=== PATIENT | female | born 1930 | race Caucasian/White ===

== ENCOUNTER → 2017-03-02 | Outpatient (CLI) | payer OTHER, MEDICARE | LOC: HYPER 06:58 | DX: T81.89XA Other complications of procedures, not elsewhere classified, initial encounter (principal); S81.801A Unspecified open wound, right lower leg, initial encounter; L03.116 Cellulitis of left lower limb; R60.9 Edema, unspecified; R73.9 Hyperglycemia, unspecified; I86.8 Varicose veins of other specified sites; F32.9 Major depressive disorder, single episode, unspecified; J44.9 Chronic obstructive pulmonary disease, unspecified; Z85.828 Personal history of other malignant neoplasm of skin; Y83.8 Other surgical procedures as the cause of abnormal reaction of the patient, or of later complication, without mention of misadventure at the time of the procedure ==

== ENCOUNTER → 2020-07-04 | Outpatient (CLI) | payer OTHER, MEDICARE | LOC: SJCVC 09:55 | PROVIDERS: ATTEND Internal Medicine Cardiovascular Disease | DX: Z01.818 Encounter for other preprocedural examination (principal); I49.1 Atrial premature depolarization; R94.31 Abnormal electrocardiogram [ECG] [EKG]; I10 Essential (primary) hypertension; E78.00 Pure hypercholesterolemia, unspecified; M19.90 Unspecified osteoarthritis, unspecified site; E78.5 Hyperlipidemia, unspecified; Z79.899 Other long term (current) drug therapy ==

== ENCOUNTER → 2020-07-06 | Outpatient (CLI) | payer OTHER, MEDICARE | LOC: SJCVCIMAG 06:42 | PROVIDERS: ATTEND Internal Medicine Cardiovascular Disease | DX: Z01.810 Encounter for preprocedural cardiovascular examination (principal); I08.2 Rheumatic disorders of both aortic and tricuspid valves; I77.810 Thoracic aortic ectasia; I10 Essential (primary) hypertension; E78.00 Pure hypercholesterolemia, unspecified; E78.5 Hyperlipidemia, unspecified; M19.90 Unspecified osteoarthritis, unspecified site; Z79.899 Other long term (current) drug therapy ==

== ENCOUNTER → 2020-08-21 | Outpatient (CLI) | payer OTHER, MEDICARE | LOC: LAB 14:14 | PROVIDERS: ATTEND Anesthesiology | DX: Z01.812 Encounter for preprocedural laboratory examination (principal); Z20.828 Contact with and (suspected) exposure to other viral communicable diseases ==

== ENCOUNTER → 2020-09-06 | Outpatient (CLI) | payer OTHER, MEDICARE ==
[~2020-09-06] MED LIST: B COMPLEX1 EACH PO; CRESTOR20 MG PO; ELDERBERRY PO; LEVOTHYROXIN0.075 MG PO; LOSARTAN POTAS100 MG PO; NORVASC5 MG PO; SERTRALINE HCL100 MG PO; VITAMIN D3100 MCG PO
== END ==
LOC: LAB 07:19
PROVIDERS: ATTEND Otolaryngology Plastic Surgery within the Head & Neck
DX: Z01.812 Encounter for preprocedural laboratory examination (principal); Z20.828 Contact with and (suspected) exposure to other viral communicable diseases

== ENCOUNTER 2020-09-11 06:16 | Inpatient (IN) | payer OTHER, MEDICARE ==
[~2020-09-11] VITALS: Ht 162.6 cm; Wt 59.1 kg
[2020-09-11] VITALS (11 sets, daily range): BP systolic 113–160; BP diastolic 65–94
[2020-09-11 12:59] LABS: HEMATOCRIT 33.7 % (37.0-47.0); MCH 30.3 pg (26.0-34.0); MCHC 32.8 g/dL (28.0-37.0); MCV 92.5 fL (80.0-100.0); RBC 3.64 mil/uL (4.20-5.00); RDW 14.3 % (10.5-14.5); WBC 6.6 thou/uL (4.0-11.0)
--- NOTE | 2020-09-11 14:00 | H ---
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 HISTORY OF PRESENT ILLNESS: The patient is an 89-year-old female referred by her dentist, Dr. Jefferson and her oral surgeon, Dr. Núñez, for an exophytic mass of her hard palate and maxillary alveolar ridge. This has been biopsied initially on 12/20/2019 and returned a verrucous appearing lesion without malignancy. This was felt to occur after tooth extraction. This was sent to pathology quality assurance consultant in [place], [place]. Final diagnosis was squamous mucosa with atypical papillary epithelial proliferation, but no diagnosis of malignancy. This continued to grow and a second biopsy was done by Dr. Núñez on 03/19/2020, skin showed squamous mucosa with atypical epithelial proliferation, but no evidence of malignancy. The patient was then referred to pr, a third biopsy was done in the office on consultation on 06/28/2020 showing again squamous epithelial hyperplasia, negative for dysplasia or carcinoma. At that point, because of my clinical suspicion, the patient was scheduled for an exam under anesthesia and definitive excisional biopsy. In the meantime, the patient was evaluated by Cardiology in addition to her dentist, Dr. Jefferson for creation of an obturator in anticipation of possible maxillectomy. 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 The patient and her were made in the office and discussion was given to treatment, recommendations were made for definitive excision via maxillectomy. The patient has since been consulted to Dr. Murrieta of Radiation Oncology and Dr. Corona of Medical Oncology. A PET scan was obtained showing a hypermetabolic mass in the right maxilla and hard palate. There was a suggestion of level 2b cervical lymph node as well. [address] [address] HISTORY AND PHYSICAL Name: LINDA BARTLETT Room #: 150-5 [facility] IN M.R.#: [id number] Admission: 09/11/20 Attend Phys: Malachi Kaye MD Discharge: Date of : 31 Report #: [id number] PAST MEDICAL HISTORY: Cataract surgery, history of hypercholesterolemia, measles, mumps, pneumonia, nasal vestibulitis, hearing loss, eustachian tube dysfunction, vertigo, multiple thyroid nodules, tortuous aorta, abnormal chest x-ray, hypertension. ALLERGIES: CODEINE. PAST SURGICAL HISTORY: Include melanoma excision in 01/2006, lipoma removal in 02/2001, nephrectomy on the left on 07/18/1987. MEDICATIONS: Peridex oral rinse, triamcinolone, losartan 100 mg daily, levothyroxine 75 mcg a day, amlodipine 5 mg a day, sertraline 100 mg a day, ____. SOCIAL HISTORY: She does not use alcohol or tobacco. She is , supportive family. FAMILY HISTORY: Father with heart disease, at age 78. Mother at age 82, history of hypertension. PHYSICAL EXAMINATION: GENERAL: Well-developed 89-year-old female seen with her . HEENT: Normocephalic. Pupils are equal, round, and reactive to light. Otologic exam intact. Mobile tympanic membrane. No middle ear effusion. Nasal exam clear. Oral cavity initially showed this exophytic mass in the right maxilla extending almost to the midline and extending on to the alveolar ridge. Postoperatively, this had an AlloDerm graft in place. NECK: No obvious adenopathy was noted. NEUROLOGIC: Cranial nerves 2-12 are intact. Motor, sensory and cerebellar exams were otherwise normal. ASSESSMENT AND PLAN: Squamous cell carcinoma of the right maxilla and maxillary alveolar ridge. This is taken four biopsies to make a diagnosis definitively with excisional biopsy. I have recommended proceeding with definitive maxillectomy due to the exophytic nature of the mass. I have consulted her to Dr. Murrieta and Dr. Corona to consider postoperative radiation and chemotherapy as well as radiation therapy for suspected metastatic disease in the neck. I will hold on definitive neck dissection secondary to the patient's age. I have reviewed the planned procedure, indications, alternatives, benefits, and [facility] [address] [place] [address] HISTORY AND PHYSICAL Name: LINDA BARTLETT Room #: 150-5 ADM IN M.R.#: [id number] Admission: 09/11/20 Attend Phys: Malachi Kaye MD Discharge: Date of : 31 Report #: [id number] potential risks at length with the patient and her who understand and desire to proceed. <ELECTRONICALLY SIGNED> By: Malachi Kaye MD 09/11/20 1400 1328 1354 Malachi Kaye MD /nt
[2020-09-11 16:33] LABS: CALCIUM 8.8 mg/dL (8.5-10.1); CREATININE 1.1 mg/dL (0.6-1.0); POTASSIUM 5.4 mmol/L (3.5-5.1); TOTAL BILIRUBIN 0.4 mg/dL (0.2-1.0); TOTAL PROTEIN 6.2 g/dL (6.4-8.2)
--- NOTE | 2020-09-11 19:49 | NUR ---
1500-FROM PACU EARLIER.SETTLED.--VW 1700- IN EARLIER FOR SHORT VISIT THEN HOME FOR THE NIGHT.PT HAS BEEN SLEEPING OFF & ON SINCE MORPHINE EARLIER.VOICE A LITTLE STRONGER.--VW 1900-CARE TURNED OVER TO ONCOMING RN.--VW
[2020-09-12] VITALS (13 sets, daily range): BP systolic 101–165; BP diastolic 50–77
[2020-09-12 06:10] LABS: HEMATOCRIT 27.9 % (37.0-47.0); HEMOGLOBIN 9.3 gm/dL (12.0-15.0); MCHC 33.3 g/dL (28.0-37.0); RDW 14.1 % (10.5-14.5); WBC 10.1 thou/uL (4.0-11.0)
[2020-09-12 06:11] LABS: CALCIUM 7.7 mg/dL (8.5-10.1); CREATININE 0.8 mg/dL (0.6-1.0)
[2020-09-12 06:35] LABS: POTASSIUM 4.2 mmol/L (3.5-5.1)
--- NOTE | 2020-09-12 10:42 | O ---
[facility] [place] [address] OPERATIVE REPORT Name: LINDA BARTLETT Room #: 249-P ADM IN M.R.#: [id number] Admission: 09/11/20 Attend Phys: Malachi Kaye MD Discharge: Date of : 31 Report #: [id number] THIS REPORT FOR: cc: Gene Price MD,Gene Kaye,Malachi Esposito MD ~ CC: MICAELA Jefferson, FANNY DATE OF SERVICE: 09/11/2020 SURGEON: Malachi Kaye M.D. PREOPERATIVE DIAGNOSIS: Squamous cell carcinoma, right maxilla and alveolar ridge. POSTOPERATIVE DIAGNOSIS: Squamous cell carcinoma, right maxilla and alveolar ridge. OPERATIONS PERFORMED: 1. Right infrastructure maxillectomy. 2. AlloDerm graft, right cheek and maxillary sinus. 3. Extraction, teeth #2 with the specimen and #8 separately. INDICATIONS: The patient is an 89-year-old female who was referred by her oral surgeon, Dr. Núñez and her dentist, Dr. Jefferson with an exophytic mass on her hard palate to the right of midline. Two biopsies had been done in November and February of this year, both showing squamous mucosa atypical papillary epithelial proliferation, but no evidence of malignancy. A third biopsy was done by me at the date her initial consult in May. This showed squamous epithelial hyperplasia, negative for dysplasia or carcinoma. I had recommended at that time that the patient be brought to surgery for a definitive excisional biopsy for diagnosis. Fourth biopsy was done with an exam under anesthesia, an extensive excision of the mass on 08/24/2020. This finally did confirm a clinical suspicion of invasive squamous cell carcinoma, well differentiated. The patient has now been recommended for a definitive surgical extubation via maxillectomy and has been consulted to Dr. Corona and Dr. Murrieta for medical and radiation-oncologic consultation. DESCRIPTION OF PROCEDURE: The patient was brought to the operating room and placed supine on the operating table. After adequate general anesthesia was [address] [address] OPERATIVE REPORT Name: LINDA BARTLETT Room #: 249-P [facility] IN M.R.#: [id number] Admission: 09/11/20 Attend Phys: Malachi Kaye MD Discharge: Date of : 31 Report #: [id number] achieved via endotracheal intubation, she was turned to 180 degrees. She was placed on a Hare horseshoe ring. A shoulder roll was placed and neck was extended. She was then prepped and draped in the usual sterile fashion. The procedure began with the exam of the oral cavity. Previous biopsy site had an AlloDerm graft placed on the right. The planned Guerrero Rosario incision was then marked out and injected with 1% Xylocaine with 1:100,000 epinephrine on the right, methylene blue was used to orient the flaps for closure. An incision was then made through the skin, subcutaneous tissue and the Guerrero Rosario incision. This was taken down just medial to the left philtrum and then carried down as a stepped incision in the lip on the white line, which was marked with methylene blue for closure. This was carried into the oral cavity and the mucosa of the lip and through and through incision made. The superior labial artery was identified, clamped between Ligaclips and divided. Dissection was then made down to the bone and the flap of the cheek was then elevated up and off the maxilla, angular artery was identified, clamped between Ligaclips and divided. This was taken up to the lower orbit until the second vision trigeminal nerve could be identified. This was then protected and preserved. Dissection continued posteriorly under the zygoma until the pterygoid plates could be seen. Dissection then began on the oral cavity. Incisions were made along the palate taking a centimeter margin around the gross area of the tumor. This extended up to tooth #8. This was a stab over tooth and a previous cap that had been present was missing. Using tooth extraction forceps, #8 was then extracted. Dissection then began along the floor of the nose. The piriform aperture was identified and dissection was then continued along the floor of the nose. At this point, attention was returned to the soft palate posteriorly just to the right of midline. A separate stab incision was made through the soft palate up into the floor of the nose. At this point, a Gigli saw was passed through the soft palate into the floor of the nose and retrieved in the nose with a Dedrick forceps. Using a Gigli saw, a bony incision was then made extending into the piriform aperture taking care not to go through and through the nasal ala. Using a sagittal saw, maxillary cuts were then made on the maxillary antrum wall into the pyriform sinus. Scissor dissection was used to cut under the inferior turbinate as the superior portion of the excision back as far as the posterior wall of the maxillary sinus. Sphenopalatine artery was then dissected and clamped between Ligaclips and divided. At this point, the attention was then turned posteriorly. The maxilla was then rock until the pterygoid plates could be visualized. Seldin elevator was then placed to fracture the pterygoid plates and separate the maxilla. The internal maxillary artery was identified with some difficulty as it had more than 1 branch. This was eventually identified, clamped between Ligaclips and divided. The pterygoid plexus of veins continued to bleed. These were controlled with bipolar cauterization in addition to Gelfoam with thrombin. The maxilla was then removed off the field as specimen, oriented for pathology. While this was ongoing, frozen sections had been taken off the patient as separate incisions on the soft palate, buccal mucosa, anterior gingiva and maxillary buttress. There [facility] [address] [place] [address] OPERATIVE REPORT Name: LINDA BARTLETT Room #: 249-P ADM IN .R.#: [id number] Admission: 09/11/20 Attend Phys: Malachi Kaye MD Discharge: Date of : 31 Report #: [id number] was some question of abnormal tissue present without tawnya carcinoma in the middle portion of the hard palate mucosa, a second margin was taken, which was clear. After the maxilla was removed and hemostasis secured, the bony edges were then taken down with a ilir bur; all hard edges and all rough edges were smoothed down. At this point, AlloDerm had been soaking. This was a 1.9 mm piece, 6 x 12, this was then chosen and placed into the defect with the dermal side towards the muscle. This was customized to the side and sutured in place with 3-0 Vicryl, closing this completely around the buccal incision with the outside of the AlloDerm extending into the new maxillary antrum cavity. A drill was used to drill holes in the maxilla superiorly under the second division trigeminal nerve, so that AlloDerm could be sutured to this area. Prior to placing the graft, Gelfoam with thrombin was placed in the infratemporal fossa to control any further oozing. Once the AlloDerm was inset, then the patient had been provided a maxillary obturator by her dentist, Dr. Jefferson. This was then placed into the mouth and oriented. Three separate holes were drilled through the obturator so that 12 mm Synthes lag screws could be placed to hold this obturator in place. The holes were drilled separately off the table. The obturator was then replaced and then screwed into the hard palate with three 12-mm Synthes lag screws. This gave a secure transition and held the obturator in good position. At this point, packing was done placing Xeroform into the maxillary sinus in the center of the Xeroform, 1 x 3, Nu Gauze iodoform impregnated was then placed. Complete packing was achieved taking care to pack back to the infratemporal fossa and then anteriorly to fill up the maxillary sinus and to provide for a bolster dressing for the AlloDerm graft. Once this was then positioned, the cheek flap was then returned to anatomic position and the Guerrero Rosario incision closed, closing muscle first as a deep layer with interrupted 3-0 Vicryl, 4-0 Vicryl deep dermal sutures were placed and then 5-0 nylon on skin, care was taken to orient the white line of the lip specifically where the stepped incision was made. The lip was then closed with interrupted 4-0 chromic closing the mucosa up to the gingival sulcus. The AlloDerm graft had been inset into this area and this matched up nicely. Once this was closed, Mastisol and Steri-Strips were applied. A Dobbhoff nasogastric tube was then placed for feeding purposes into the contralateral left naris and advanced 60 cm into the stomach. This was taped in place across the forehead. Examination was made posteriorly. There was no bleeding. Wound was then irrigated. The patient was then returned to anesthesia, awake without difficulty and returned to recovery in good condition. Sponge and needle counts were correct. There were no complications. Blood loss was about 750 mL. The patient has been typed and crossed for blood and will be followed in the ICU. The patient was returned to recovery room awake without difficulty and then [place] [id number] OPERATIVE REPORT Name: LINDA BARTLETT Room #: 249-P ADM IN M.R.#: [id number] Admission: 09/11/20 Attend Phys: Malachi Kaye MD Discharge: Date of : 31 Report #: [id number] returned to her room in the Intensive Care Unit. She will be watched in the hospital several days with consultations to Geriatrics and Speech Therapy. <ELECTRONICALLY SIGNED> By: Malachi Kaye MD 09/12/20 1042 1320 1417 Malachi Kaye MD /nt
--- NOTE | 2020-09-12 12:23 | NUR ---
unable to visit with shabana rt pod # 1 from surgery. will cont following as needed for dc needs. noted in chart possible going to start tf
--- NOTE | 2020-09-12 15:40 | NUR ---
PATIENT TRANSFERS TO [facility] AT 1324. PATIENT TRANSFERED BY WHEELCHAIR WITH NURSE AND FAMILY.
--- NOTE | 2020-09-12 19:54 | NUR ---
ASSUMED CARE OF PATIENT APPROX 1335. AT BEDSIDE. PATIENT HAS NG TUBE WITH JEVITY 1.5 GOING AT 20 WITH A GOAL OF 45. PATIENT IS A&OX2, VSS, C/O PAIN IN MOUTH. PATIENT GETS CONFUSED AND TAKES NASAL CANULA OFF AND TUGS AT NG TUBE. PATIENT IS EASY TO REDIRECT. IV PATENT, FLUIDS RUNNING. PATIENT IS ON 4L OF OXYGEN.NO SIGNS OF DISTRESS. WILL CONTINUE TO MONITOR.
--- NOTE | 2020-09-13 03:25 | NUR ---
Pt. has been anxious and trying to get up out of the bed without calling for help. She pulled out her iv and dobhoff. She is confused and unable to re- orient. Sai WALL called and notified with new orders for soft bilateral wrist restraints. fixer supervisor called and notified. Dobhoff was re- inserted and awaiting radiology results. Bed alarm is on.
[2020-09-13 07:18] VITALS: BP 128/69
--- NOTE | 2020-09-13 07:43 | NUR ---
The night nurse Alvina claimed she would call the and notify him about the restraint on the patient.
--- NOTE | 2020-09-13 08:00 | NUR ---
Spoke to this am and notified the need for his to have soft wrist restraints.
--- NOTE | 2020-09-13 14:19 | NUR ---
PT ADMITTED RELATED TO MAXILLECTOMY. CM REVIEWED CHART AND SPOKE WITH CARE TEAM. CM MET WITH PT AND SPOUSE AT BEDSIDE THIS DAY. PT WAS SLEEPING. SPOUSE INDICATED THAT THEY RESIDE IN A HOUSE WITH 6 STEPS TO ENTER THROUGH GARAGE TO MAIN LIVING AREA AND 5 STEPS INSIDE TO BEDROOMS AND BATHROOMS. 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 SPOUSE INDICATED NO HH, OR SKILLED HX BUT THAT PT HAD BEEN DOING OP PT AT [facility] IN [place] UNTIL 4 WEEK PRIOR TO ADMIT. 5N ASSESSED AND INDICATED THAT THEY ARE ABLE TO ACCEPT PT FOR ACUTE REHAB STAY ONCE MEDICALLY STABLE. PT HAS DOBHOFF IN PLACE CURRENTLY. CM NOTIFIED HOSPITALIST OF 5N ADMISSION CM TO ASK NURSE TO NOTIFY DR. COOK CM DOESN'T HAVE HIS CONTACT. CM TO FOLLOW INDICATED WITH DC PLANNING.
[2020-09-13 15:06] VITALS: BP 149/84
--- NOTE | 2020-09-13 16:06 | PATH ---
[facility] [address] [place] [address] PATHOLOGY RPT PROCEDURE Name: KALEIGH BARTLETT Room #: 463-P ADM IN M.R.#: [id number] Admission: 09/11/20 Date of : 31 Discharge: Report #: [id number] Path Case #: [id number] [facility] Accession Number: [id number] . 01 Material submitted: . PART A: MAXILLA - GINGIVAL MARGIN ANTERIOR AT #8 FS. Modifiers: anterior PART B: MAXILLA - GINGIVAL MARGIN ANTERIOR HARD PALETTE AT #8 FS. Modifiers: anterior PART C: oral cavity - BUCCAL MARGIN FS PART D: MAXILLA - MAXILLARY BUTTRESS POSTERIOR FS PART E: MAXILLA - HARD PALATE MARGIN MEDIAL ANTERIOR AND POSTERIOR MARGIN ON TELFA FS PART F: MAXILLA - HARD PALATE 2ND MARGIN MIDDLE/ MEDIAL FS PART G: MAXILLA - RIGHT MAXILLECTOMY. Modifiers: right PART H: mouth - NUMBER 8 TOOTH . 01 Clinician provided ICD-10: C06.89 . 01 Clinical history: . 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 . TORTUOUS AORTA, SENSORINEURAL HEARING LOSS EUSTACHIAN TUBE DYSFUNCTION . 02 Frozen section diagnosis: . INTRAOPERATIVE CONSULTATION WITH FROZEN SECTION: (Dr. Sarah Escamilla) . FSA1. Mucosa, gingival margin anterior at number 8, biopsy: - Negative for invasive carcinoma or dysplasia on FS slide. . FSB1. Gingival margin anterior hard palate at number 8, biopsy: - Negative for invasive carcinoma or dysplasia on FS slide. . FSC1. Mucosa, buccal margin, biopsy: - Negative for invasive carcinoma or dysplasia on FS slide. . FSD1. Mucosa, maxillary buttress posterior margin, biopsy: - Negative for invasive carcinoma or dysplasia on FS slide. . FSE1. Hard palate margin medial, biopsy: - Negative for invasive carcinoma at anterior and posterior end of the mucosa; mid mucosal margin with atypical epithelial islands within the stroma. . FSF1. Hard palate second margin middle medial, biopsy: - Negative for invasive carcinoma. [facility] [address] [place] [address] PATHOLOGY RPT PROCEDURE Name: KALEIGH BARTLETT Room #: 463-P ADM IN M.R.#: [id number] Admission: 09/11/20 Date of : 31 Discharge: Report #: [id number] Path Case #: [id number] . . Findings are discussed with Dr. Malachi Kaye in OR6 at [facility] and a written report is placed in the patient's chart. (IUV:mml; 09/11/2020) . . FROZEN SECTION GROSS DESCRIPTION: A. Received fresh from the OR labeled, "Samreen, Kaleigh - Gingival margin anterior at number 8" consists of a 1 cm mucosa with underlying soft tissue. Submitted for frozen section entirely as FSA1, this is subsequently submitted for permanent section as A1. . B. Received fresh from the OR labeled, "Samreen, Kaleigh - Gingival margin anterior hard palate at number 8" consists of a red-andrews soft tissue fragment measuring approximately 1.5 cm. It is inked black and submitted in entirety for frozen section as FSB1, this is subsequently submitted for permanent section as B1. . C. Received fresh from the OR labeled, "Samreen, Kaleigh - Buccal margin" consists of a 7.2 cm mucosa with underlying soft tissue, measuring approximately 7.2 x 0.3 x 0.3 cm. Cut into three pieces and submitted in entirety for frozen section as FSC1, this is subsequently submitted for permanent section as C1. . D. Received fresh from the OR labeled, "Samreen, Kaleigh - Maxillary buttress posterior margin, medial and lateral orientation on Telfa" consists of two tiny red-andrews pieces of soft tissue with overlying shiny mucosa, each measuring 0.4 cm and 1.5 cm. The medial margin is the 0.4 cm specimen. It is inked blue and submitted in entirety for frozen section, along with the lateral margin which is not inked on FSD1 in entirety. The frozen section remnant is submitted for permanent section as D1. . E. Received fresh from the OR labeled, "Samreen, Kaleigh - Hard palate margin medial, anterior and posterior orientation on Telfa" consists of a 4.5 x 1.0 x 1.0 cm fragment of mucosa with underlying soft tissue. The anterior margin is inked blue and the posterior margin is inked black. The middle 0.5 cm is not inked. Cut into anterior, posterior and mid area, submitted for frozen section as FSE1, this is subsequently submitted for permanent section as E1. (IUV:mml; 09/11/2020) . F. Received fresh from the OR labeled with the patient's name, and "hard palate second margin middle medial", consists of a 3 cm red-andrews tissue fragment. It is oriented as anterior and posterior. The anterior end is inked blue and the posterior is inked black. At this point, the specimen is submitted in entirety for frozen section as FSF1; this is subsequently submitted for permanent sections as F1. [address] [address] PATHOLOGY RPT PROCEDURE Name: KALEIGH BARTLETT Room #: 463-P ADM IN M.R.#: [id number] Admission: 09/11/20 Date of : 31 Discharge: Report #: [id number] Path Case #: [id number] (IUV:xiao; 09/11/2020) . Frozen sections performed at [facility], [address], [place] [address]. IZV/QLM . 02 Diagnosis: A. Mucosa, gingival margin anterior at #8, biopsy: - Marked acute and chronic inflammation associated with reactive changes. - Negative for dysplasia or malignancy. . B. Mucosa, gingival margin anterior hard palate at #8, biopsy: - Marked acute and chronic inflammation associated with reactive changes. - Negative for dysplasia or malignancy. . C. Mucosa, buccal margin, biopsy: - Moderate acute and chronic inflammation associated with reactive changes. - Negative for dysplasia or malignancy. . D. Mucosa, maxillary buttress posterior margin, biopsy: - Mild acute and chronic inflammation associated with reactive changes. - Negative for dysplasia or malignancy. . E. Mucosa, hard palate medial margin, biopsy: - Moderate acute and chronic inflammation associated with reactive changes present at the anterior and posterior margins. - Focal invasive squamous cell carcinoma associated with the ulceration identified at the center of the biopsy tissue. . F. Mucosa, hard palate second middle/medial margin, biopsy: - Mild chronic inflammation associated with reactive changes. - Negative for dysplasia or malignancy. . G. Maxilla, right, maxillectomy: - FOCAL INVASIVE WELL-DIFFERENTIATED SQUAMOUS CELL CARCINOMA PRESENT IN ASSOCIATION WITH EXTENSIVE ULCERATION MEASURING 3 MM X 1 MM MICROSCOPICALLY. - Previous biopsy site changes along with extensive giant cell reaction present within the background measuring 1.5 cm. - Negative for perineural invasion. - Negative for invasion into underlying bone or skeletal muscle. - Margins of resection free of malignancy; closest maxillary sinus mucosa margin is 6 mm away. . H. Tooth #8 tooth, removal: - 1.8 x 0.6 cm tooth (gross exam only). [address] [address] PATHOLOGY RPT PROCEDURE Name: KALEIGH BARTLETT Room #: 463-P [facility] IN ..#: [id number] Admission: 09/11/20 Date of : 31 Discharge: Report #: [id number] Path Case #: [id number] (IUV:pit 09/13/2020) . Surgical Pathology Cancer Case Summary . Protocol posting date: April 2017 . LIP AND ORAL CAVITY: . Procedure ___ Maxillectomy: Maxillary Alveolar Ridge . Tumor Site ___ Oral _ Alveolar process, maxillary . Tumor Laterality ___ Right . Tumor Focality ___ Unifocal . Tumor Size Greatest dimension (centimeters): 0.3 cm . Tumor Depth of Invasion (DOI) (millimeters): 1 mm . Histologic Type . Squamous Cell Carcinoma and Variants ___ Squamous cell carcinoma, conventional . . Histologic Grade (required for squamous cell carcinoma only) ___ G1: Well differentiated . Tumor Extension (other structures involved) Specify: None . Specimen Margins ___ Uninvolved by invasive tumor Distance from closest margin (millimeters):at least 6 mm Specify location of closest margin, per orientation, if possible: Maxillary sinus mucosa . Tumor Bed ___ Oriented to true margin surface . Tumor Bed [facility] [address] [place] [address] PATHOLOGY RPT PROCEDURE Name: KALEIGH BARTLETT Room #: 463-P ADM IN M.R.#: [id number] Admission: 09/11/20 Date of : 31 Discharge: Report #: [id number] Path Case #: [id number] ___ Uninvolved by invasive tumor Specify distance to true margin surface (millimeters):9 mm Specify margin(s), per part labeling, if possible: Maxillary Sinus (Sinonasal mucosa) ___ Uninvolved by high-grade dysplasia/in situ disease# Specify distance to true margin surface (millimeters): 9 mm Specify margin(s), per orientation, if possible: Maxillary Sinus (Sinonasal mucosa) . Lymphovascular Invasion ___ Not identified . Perineural Invasion ___ Not identified . Regional Lymph Nodes . ___ No lymph nodes submitted or found . Pathologic Stage Classification (pTNM, AJCC 8th Edition) . For All Carcinomas . Primary Tumor (pT) ___ pT1: Tumor less than or equal to 2 cm with depth of invasion (DOI) less than or equal to 5 mm . Regional Lymph Nodes (pN) (Note H)# ___ pNX: Regional lymph nodes cannot be assessed QT 09/13/2020 1542 Local . 02 Comment: The most recent biopsy ([id number]) showed a squamous cell carcinoma. A tiny focus of residual invasive squamous cell carcinoma is identified within the sections examined. The lesion identified grossly shows extensive ulceration along with previous biopsy site changes. The margins of resection are widely free of malignancy. (IUV:pit 09/13/2020) . 02 Electronically signed: . Sarah Escamilla MD, Pathologist NPI- [id number] . 01 Gross description: . A-F. PLEASE SEE FROZEN SECTION GROSS DESCRIPTION . G. Received fresh from the OR labeled with the patient's name, [place] [address] PATHOLOGY RPT PROCEDURE Name: KALEIGH BARTLETT Room #: 463-P [facility] IN .R.#: [id number] Admission: 09/11/20 Date of : 31 Discharge: Report #: [id number] Path Case #: [id number] "right maxillectomy", consists of an oriented maxilla resection with attached tooth and overlying mucosa. The specimen measures 6 cm anterior to posteriorly, 3 cm from mouth to maxillary sinus mucosa and is an additional 3 cm from superior to inferior (thickness). The molar tooth in the center of the specimen appears grossly unremarkable. Adjacent to it towards the anterior end is an ulcerated lesion associated with Gelfoam material. This lesion is approximately 1.5 x 0.5 cm. Due to the fact that the specimen is comprised of bone, it is submitted in formalin to be subjected to decalcification for additional gross examined. The specimen is inked as follows: anterior- blue, posterior- black, mouth- green, maxillary sinus mucosa- yellow. (IUV:xiao; 09/11/2020) . Sectioning shows the tumor grossly abuts the tooth root. Hospitality Specialist sections are submitted as follows: . G1: Full-thickness section posterior tooth G2: Thickness section anterior tooth showing tumor G3: Tumor shaved off tooth G4-G8: Sequential sections anterior tooth after tumor All sections will be submitted following decalcification. . H1. The specimen is received fresh, labeled "Kaleigh Bartlett, 8 tooth" and consists of a pink-orange tooth measuring 1.8 x 0.7 x 0.6 cm. A gross photo is taken. (SDY; 09/12/2020) [facility] 09/13/2020 1140 Local . 02 Pathologist provided ICD-10: K05.11, K12.1, C03.0 . 02 CPT . 683543, 049035, 430590, 565513, 925008, 627449, 699428, 490933, 421677, 574622, 639853, 852261, 439384, 625064, 965166 Specimen Comment: A courtesy copy of this report has been sent to [phone] Specimen Comment: Report sent to Performed at: [address], [place], [place] [id number] MD Zeeshan Watt MD Phone: [phone] Performed at: [address] [id number] MD Sarah Escamilla MD Phone: [phone]
--- NOTE | 2020-09-13 18:34 | NUR ---
Tolerate tube feeding well, no n/v; according to the request of the , restraints off at 9:45 am, patient has been calm and cooperative, verbally agrees not to take any tube off. Garcias is out.
--- NOTE | 2020-09-13 19:45 | NUR ---
Restraint DC at 0945am.
[2020-09-13 20:00] VITALS: BP 139/67
--- NOTE | 2020-09-14 06:01 | NUR ---
ASSUMED CARE OF PT AT 1900. PT IS A/O X1. C/O GENERALIZED ABDOMINAL PAIN. PRN PAIN MEDICATION PROVIDED. DOBHOFF IN PLACE AT 60 AND IS PATENT. TUBE FEEDING IS GIVEN DIRECTED. PT VOIDS WITH NO S/S OF RETENTION SINCE REMOVAL OF INIGUEZ CATHETER. AT THIS TIME PT IS SITTING IN HER BED AND APPEARS TO BE SLEEPING WITH HOB ELEVATED. SCD'S IN PLACE. WILL CONTINUE TO MONITOR.
[2020-09-14 07:54] VITALS: BP 149/72
[2020-09-14 17:37] VITALS: BP 142/81
--- NOTE | 2020-09-14 19:17 | NUR ---
ASSUMED PT CARE THIS AM. PT A&OX2, VITAL SIGNS STABLE. PT REPORTED NO PAIN. MEDS GIVEN PER DOBHOFF, WITH 120 CC WATER. LIPS CHAPPED, MOISTURIZER PUT ON. PT AMBULATORY TO BEDSIDE COMMODE WITH ASSISTANCE X1. WAS COMMUNICATED THAT PT WOULD DISCHARGE AND GO TO ROOM 506. DISCHARGE ORDERS NEVER PUT IN. DR'S CALLED AND INFORMED, NURSE PIPE ORGAN TECHNICIAN INFORMED. DR. COOK INDICATED THAT HE WANTED THE NURSE TO PUT DISCHARGE ORDERS IN, CHARGE NURSE MADE HIM AWARE THIS IS OUTSIDE OUR SCOPE OF PRACTICE. HOUSE SUP TOOK UP TO CHAIN OF COMMAND TO DR PEGUERO, STILL AWAITING DISCHARGE ORDERS. RIGHT BEFORE SHIFT CHANGE, PT REMOVED DOBHOFF. ATTEMPTED TO CALL TO MAKE AWARE, NO CALL BACK YET. ENDORSED TO NIGHT NURSE.
[2020-09-14 19:45] VITALS: BP 154/96
--- NOTE | 2020-09-14 19:45 | NUR ---
ASSUMED CARE OF PT AT 1900. WAS GIVEN REPORT THAT PT IS A POSSIBLE D/C. CALLED AND STATED THAT PT WOULD NOT BE DISCHARGING THIS NOC. PT ACCIDENTLY DISCHARGED DOBHOFF. NOTIFIED BUCKLE FRAME SHAPER. BUCKLE FRAME SHAPER STATED TO LEAVE DOBHOFF DISCHARGED AT THIS TIME.
[2020-09-15 05:46] LABS: HEMATOCRIT 29.7 % (37.0-47.0); HEMOGLOBIN 9.8 gm/dL (12.0-15.0); MCH 30.5 pg (26.0-34.0); MCHC 32.9 g/dL (28.0-37.0); MCV 92.7 fL (80.0-100.0); RBC 3.2 mil/uL (4.20-5.00); RDW 14.5 % (10.5-14.5); WBC 6.1 thou/uL (4.0-11.0)
[2020-09-15 06:04] LABS: CALCIUM 9.2 mg/dL (8.5-10.1); CREATININE 0.8 mg/dL (0.6-1.0); MAGNESIUM 1.9 mg/dL (1.8-2.4); POTASSIUM 4.6 mmol/L (3.5-5.1)
[2020-09-15 07:48] VITALS: BP 155/80
--- NOTE | 2020-09-15 16:31 | NUR ---
Received awake on bed. Due medications given as prescribed, crushed and mixed with pudding/apple sauce- tolerating well. On telemetry; no complains or signs of chest pain, crushing sensation and heaviness. On O2 at 2lpm via nasal cannula. On pureed diet- assisted and encouraged in eating and drinking. A/w physician's rounds if to re-insert Dobhoff, as per date night caregiver nurse- pt pulled it out last night; to resume TF orders as well. Continent of bowel and bladder, assisted in using bedside commode; falls bundle in place. With D51/2NS at 125cc/hr, infusing well at R AC- dressing changed today. May be impulsive at times, might be ing. at beside, update given. Pt seen and examined by Dr Kaye this AM, orders obtained to re-insert Dobhoff. Inserted as per protocol; xray done to confirm placement- verified result with charge nurse. TF resumed as ordered; tolerating well- no nausea, no vomiting and no abdominal pain noted. Able to sit out on the chair today. Pt possible discharge to [facility] today, as per Dr Kaye to d/c transfer as of now, pt not stable yet- called [facility] Staff Don and informed him that transfer won't push trough today. Pt seen and examined by Dr Roque this AM- suggesting [facility] for patient- he will inform Dr Kaye. Complained of pain, due PRN pain meds given as prescribed. To continue monitoring patient.
[2020-09-15 22:30] VITALS: BP 128/68
--- NOTE | 2020-09-16 04:00 | NUR ---
Pt. rested quietly during the night when checked on during frequent rounds. She is alert with confusion. Up to the bedside comode with assistance of one to two. Attempted to get out of the bed and became angry with this nurse and electrolog operator when redirecting her. Bed alarm is on. Dobhoff is patent with jevity 1.5 infusing without difficulty.
[2020-09-16 08:08] VITALS: BP 138/74
[2020-09-16] MEDS ORDERED: AUGMENTIN400 MG/53 PER TUBE (08:48)
[2020-09-16] MEDS ORDERED: PROMS25 WY RECTAL (08:48)
[2020-09-16] MEDS ORDERED: DEEP SEA NASAL44 M1 NASAL (08:49)
[2020-09-16] MEDS ORDERED: PERIDEX 0.12%473 M1 SWISH&SPIT (08:49)
[2020-09-16] MEDS ORDERED: ONDANSETRON4 MG/2 M1 IV PUSH (08:50)
--- NOTE | 2020-09-16 15:02 | NUR ---
ASSUMED PT CARE THIS AM. PT VITAL SIGNS STABLE, A&OX2. DOBHOFF PATENT, TUBE FEEDINGS TOLERATED WELL. PT UP TO BEDSIDE COMMODE, SMALL BM TODAY. ANTIBIOTIC GIVEN THROUGH DOBHOFF, FLUSHED WITH 60 ML WATER. MEDS ARE TAKEN WHOLE IN APPLESAUCE. PT ON NC AT 2.5 L. PT TOLERATING DIET WELL. NO COMPLAINTS OF PAIN. IV IN RIGHT AC INFILTRATED, NEW IV STARTED IN RIGHT WRIST. PT ON TELE. PT RELUCTANT TO FEED SELF, MADE AWARE OF THE IMPORTANCE OF INDEPENDENCE IF POSSIBLE. PT THEN WAS ABLE TO FEED SELF. WILL CONTINUE TO MONITOR.
[2020-09-16 16:02] VITALS: BP 131/68
[2020-09-16 20:00] VITALS: BP 134/78
--- NOTE | 2020-09-17 03:31 | NUR ---
VSS-AFEBRILE. 2.5LNC IN PLACE. RESTED WELL THROUGH NIGHT. OOB MULTIPLE TIMES TO USE BSC, NO REPORTED BM. DOBB-JOSÉ IN CORRECT POSITION, RECHECKED AFTER SLIGHT DISLODGEMENT. KUB SHOWS LINE IS IN STOMACH AND OK TO USE. TOLERATING TUBE FEEDING WITH NO RESIDUAL NOTED. FALL PRECAUTIONS IN PLACE, CALLS APPROPRIATELY FOR ANY NEEDED ASSISTANCE.
[2020-09-17 05:43] LABS: HEMATOCRIT 29.7 % (37.0-47.0); HEMOGLOBIN 9.8 gm/dL (12.0-15.0); MCH 30.5 pg (26.0-34.0); MCHC 33.2 g/dL (28.0-37.0); MCV 91.8 fL (80.0-100.0); RBC 3.23 mil/uL (4.20-5.00); RDW 13.8 % (10.5-14.5); WBC 6.6 thou/uL (4.0-11.0)
[2020-09-17 05:50] LABS: CALCIUM 9.8 mg/dL (8.5-10.1); CREATININE 0.9 mg/dL (0.6-1.0); MAGNESIUM 2.2 mg/dL (1.8-2.4); POTASSIUM 4.5 mmol/L (3.5-5.1)
--- NOTE | 2020-09-17 10:49 | NUR ---
CARE TEAM INDICATED THAT PT WILL BE MEDICALLY STABLE TO DC TO [facility] THIS DAY. PT AND SPOUSE ARE AWARE AND AGREEABLE. CM TO FOLLOW INDICATED WITH DC PLANNING.
[2020-09-17 12:44] VITALS: BP 132/75
--- NOTE | 2020-09-17 16:19 | NUR ---
ASSUMED PATIENT CARE THIS AM. ASSESSMENT CHARTED. MEDICATIONS GIVEN PER MAR IN PUDDING W NO ISSUES. VSS; AFEBRILE. PATIENT IS A&OX3 WITH SOME CONFUSION. EASILY REDIRECTED. DOBHOFF IN PLACE AND PATENT; RECIEVING ABX THROUGH ABX. NEEDS ENCOURAGEMENT TO EAT BUT TOLERATES WELL AND IS FEEDING HERSELF W A MIRROR. STILL ON 2.5L NC. NO TELEMETRY ISSUES; CHEST XRAY PERFORMED TODAY REVEALED NO ISSUES. PATIENT CLEARED TO D/C TO REHAB; REPORT GIVEN TO ARGELIA NEWBERRY. WILL CONTINUE TO MONITOR
--- NOTE | 2020-09-18 08:01 | D ---
[facility] [place] [address] DISCHARGE SUMMARY Name: LINDA BARTLETT Room #: 463-P [facility] IN M.R.#: [id number] Admission: 09/11/20 Attend Phys: Malachi Kaye MD Discharge: 09/17/20 Date of : 31 Report #: [id number] THIS REPORT FOR: cc: Keith Price MD,Keith Kaye,Malachi Esposito MD ~ THIS REPORT FOR: //name// CC: KEITH Kaye DATE OF SERVICE: 09/11/2020 SURGEON: Malachi Kaye M.D. ADMISSION DIAGNOSES: Squamous cell carcinoma, right maxillary alveolar ridge. PROCEDURES: Right maxillectomy with AlloDerm graft. HOSPITAL COURSE: The patient was admitted on 09/11/2020, brought to the operating room for infrastructure maxillectomy secondary to an invasive squamous cell carcinoma, right maxillary alveolar ridge. This had been first noticed by her dentist in 10/2019. Biopsies were done in November and February by her dentist and oral surgeon with benign findings. She was referred to me. Biopsies were done in late May, early June. Again, benign. Because of clinical suspicion of carcinoma, she was brought to the operating room in July where a wide excision was done confirming clinical diagnosis of squamous cell carcinoma. The patient has since been consulted to her consultants and recommended maxillectomy. She was brought to surgery on the . She had an uncomplicated surgery. The patient's obturator had been made by her dentist, Dr. Jefferson and was fixed to her hard palate with screw fixation. Packing is in her maxillary sinus and infratemporal fossa at this time. Dobbhoff tube was placed for feeding secondary to inability to swallow effectively and maintain nutrition. Swallow study done on 09/14/2020 did not show any aspiration and the patient was placed on nectar thick liquids and pureed solids. She is transferred to the inpatient rehabilitation unit at this point as a discharge from acute care. Medications were continued including Augmentin suspension 400 mg per PEG tube b.i.d., amlodipine 5 mg, levothyroxine 75 mcg, losartan 100 mg daily, sertraline 100 mg daily, rosuvastatin 20 mg daily and vitamin D and vitamin B. Pain control has been with Tylenol and hydrocodone. PAST MEDICAL AND SURGICAL HISTORY: Hypertension, dyslipidemia, hypothyroidism, sleep apnea with CPAP intolerance, history of left nephrectomy for benign tumor [address] [address] DISCHARGE SUMMARY Name: LINDA BARTLETT Room #: 463-P [facility] IN M.R.#: [id number] Admission: 09/11/20 Attend Phys: Malachi Kaye MD Discharge: 09/17/20 Date of : 31 Report #: [id number] in 12/1986, history of lipectomy for a lipoma in the back, history of skin cancer, multiple. REVIEW OF SYSTEMS: Twelve-point system otherwise negative. PLAN: The patient will be transferred to the rehabilitation unit inpatient in discharge from acute care on the Med-Surg floor. She will continue with Dobbhoff tube in place with tube feeding for nutrition supplemented by pureed and dental soft diet. She is transferred for increased occupational and rehabilitation therapy as well as aggressive speech and swallowing therapy. The patient's medications have been changed to Dobhoff feeding and the patient will need to continue on oral antibiotics while the packing is in place to prevent toxic shock syndrome. I will anticipate a return to the operating room on next 09/21/2020 for takedown of the obturator and removal of packing. I will discuss with her dentist, Dr. Jefferson for creation of a second stage obturator for her maxilla. <ELECTRONICALLY SIGNED> By: Malachi Kaye MD 09/18/2001 9 0942 Malachi Kaye MD /nt
== END 2020-09-17 19:13 | DRG 463 ==
LOC: ICU 06:16 → TBA 06:16 → PRE 15:32 → ICU 15:36 → 4W 09-12 13:15
PROVIDERS: Internal Medicine; ADMIT Otolaryngology Plastic Surgery within the Head & Neck; ATTEND Otolaryngology Plastic Surgery within the Head & Neck
PROC: 0HR1XK3 Replacement of Face Skin with Nonautologous Tissue Substitute, Full Thickness, External Approach (ICD-10-PCS; principal; 2020-09-11)
PROC: 0DH67UZ Insertion of Feeding Device into Stomach, Via Natural or Artificial Opening (ICD-10-PCS; principal; 2020-09-11)
PROC: 0NBR0ZZ Excision of Maxilla, Open Approach (ICD-10-PCS; principal; 2020-09-11)
PROC: 0CDWXZ1 Extraction of Upper Tooth, Multiple, External Approach (ICD-10-PCS; principal; 2020-09-11)
DX: C41.0 Malignant neoplasm of bones of skull and face (principal); J96.01 Acute respiratory failure with hypoxia; G93.41 Metabolic encephalopathy; E46 Unspecified protein-calorie malnutrition; D62 Acute posthemorrhagic anemia; E78.5 Hyperlipidemia, unspecified; I10 Essential (primary) hypertension; E03.9 Hypothyroidism, unspecified; R13.10 Dysphagia, unspecified; R53.81 Other malaise; F32.9 Major depressive disorder, single episode, unspecified; Z88.5 Allergy status to narcotic agent; Z98.42 Cataract extraction status, left eye; Z98.41 Cataract extraction status, right eye; Z90.5 Acquired absence of kidney; Z68.22 Body mass index [BMI] 22.0-22.9, adult; Z23 Encounter for immunization
CPT/HCPCS: 10040; 10045; 10078; 50010; 50101; 50386; 50398; 50455; 50505; 50951; 51412; 51609; 51636; 52190; 56524; 56526; 56528; 56529; 56668; 56760; 57006; 57150; 58339; 62110; 62900; 70005

== ENCOUNTER 2020-09-14 09:30 | Inpatient (IN) | payer OTHER, MEDICARE ==
[~2020-09-14] VITALS: Ht 162.6 cm; Wt 61.9 kg
--- NOTE | ~2020-09-14 | PLAN ---
[facility] [address] [place] [address] REHAB UNIT PLAN OF CARE Name: LINDA BARTLETT Room #: 505-P ADM IN M.R.#: [id number] Admission: 09/17/20 Attend Phys: Denny Cantu MD Discharge: Date of : 31 Report #: [id number] THIS REPORT FOR: //name// CC: Denyn Price DATE OF SERVICE: 09/19/2020 PROGRESS NOTE/OVERALL PLAN OF CARE SUBJECTIVE: The patient was seen back today in followup. She was in no distress. She has the nasal prong O2 in place. She has the nasal cannula at 1 liter. She has the Dobhoff in place. Speech therapy is working with her. She is on a pureed diet with nectar thickened liquids. In physical therapy, transfers have been mod assist with gait 70 feet, mod assist with a front-wheeled walker. In occupational therapy, upper body dressing is moderate assistance with lower body dressing, max assist. Gastroenterology is seen and the plan is for PEG tube placement on Thursday. ASSESSMENT: 1. Medical complexity with generalized debilitation. 2. Right maxillary squamous cell carcinoma, status post maxillectomy with graft teeth extraction on 09/11/2020. 3. Acute hypoxic respiratory failure with possible pneumonia. 4. Dysphagia. 5. Mild postoperative acute blood loss anemia. 6. Chronic vertigo. 7. Hypertension. 8. Hypothyroidism. 9. Constipation. PLAN: The overall plan of care includes the followin. Estimated length of stay is probably going to be at least 12-14 days. 2. Medical prognosis is reasonably good. 3. Anticipated interventions includes the interdisciplinary acute inpatient rehabilitation program. 4. Anticipated functional outcomes would be for the patient to become modified independent with transfers, mobility and ADLs and to reach a stable situation. As far as her nutrition, which in this case would be for PEG tube feedings. 5. Discharge destination would be back home with . 6. Expected therapy by discipline includes PT, OT and speech 1 hour per day each five days a week throughout the duration of the acute inpatient rehabilitation stay. The patient's prognosis for significant practical improvement within a [facility] [address] [place] [address] REHAB UNIT PLAN OF CARE Name: LINDA BARTLETT Room #: 505-P ADM IN [facility].#: [id number] Admission: 09/17/20 Attend Phys: Denny Cantu MD Discharge: Date of : 31 Report #: [id number] reasonable period of time appears good. Given the patient's complex medical condition and risk of further medical complications, rehabilitation services cannot be safely provided at a lower level of care such as a fpc facility. By: 0837 [id number] Denny Cantu MD /nt
--- NOTE | ~2020-09-14 | H ---
[facility] [address] [place] [address] HISTORY AND PHYSICAL Name: LINDA BARTLETT Room #: 505-P ADM IN M.R.#: [id number] Admission: 09/17/20 Attend Phys: Denny Cantu MD Discharge: Date of : 31 Report #: [id number] THIS REPORT FOR: cc: Gene Price MD,Gene Cantu,Denny Givens MD ~ CC: Denny Price DATE OF SERVICE: 09/17/2020 HISTORY AND PHYSICAL/POSTADMISSION PHYSICIAN EVALUATION HISTORY OF PRESENT ILLNESS: The patient is an 89-year-old white female who was originally admitted to [facility] for scheduled surgery with ENT, Dr. Kaye for squamous cell carcinoma. She underwent a maxillectomy with graft and tooth extraction x 2 on 09/11/2020. Postoperatively, she required O2 for mild respiratory failure. Chest x-ray showed probable infiltrate. She had some initial confusions and pulled out her lines, but improved. She has been on Dobhoff feedings and underwent video swallow study on 09/14/2020 and was advanced to nectar thickened liquids with pureed solids and to continue on Dobhoff feedings. She was noted to have medical complexity with generalized debilitation with multiple medical comorbidities as noted above and has now been admitted for acute in-hospital inpatient rehabilitation. 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 MEDICATIONS: Please see the full medication listing. ALLERGIES: INCLUDE CODEINE. SOCIAL HISTORY: Lives with spouse, 6 steps in, 5 inside, was very active, independent with ADLs and IADLs. No assistive device. She does have a history of vertigo with last bad episode 3 months ago. HABITS: No history of tobacco or alcohol abuse. REVIEW OF SYSTEMS: Denied dizziness or headache. No cough or chest pain. No abdominal discomfort. No bladder problems. She has some facial discomfort, which is controlled with her medication management. Complains of generalized weakness. PHYSICAL EXAMINATION: GENERAL: An 89-year-old white female in no obvious distress. [place] [address] HISTORY AND PHYSICAL Name: LINDA BARTLETT Room #: 505-P [facility].#: [id number] Admission: 09/17/20 Attend Phys: Denny Cantu MD Discharge: Date of : 31 Report #: [id number] seen on 09/17/2020. She was pleasant, alert, follows basic 1 step commands without difficulty. VITAL SIGNS: Temperature 97.9, pulse 94, respirations 16, blood pressure 132/75. HEENT: Head, normocephalic. She has the Dobhoff in place. NECK: No lymphadenopathy. LUNGS: Diminished. No crackles. CARDIAC: Sounded regular rate and rhythm. ABDOMEN: Bowel sounds positive, nontender. EXTREMITIES: She has functional range of motion of both upper and lower extremities. Lead Programmer are equal. Lower extremities are at least a grade 4-/5. Negative Homans. No distal lower extremity edema. She does have some bruises to her lower extremities. She is mod assist coming to stand. ASSESSMENT: An 89-year-old white female with the following problem list: 1. Medical complexity with generalized debilitation. 2. Right maxillary squamous cell carcinoma, status post maxillectomy with graft, teeth extraction, 09/11/2020. 3. Acute hypoxic respiratory failure with possible pneumonia. 4. Dysphagia. 5. Mild postoperative acute blood loss anemia. 6. Chronic vertigo. 7. Hypertension. 8. Hypothyroidism. 9. Constipation. PLAN: Phone discussion was held with Dr. Kaye. The patient is to continue on the Do and she notes that the plan is to have the patient go back for surgery this coming Thursday for removal of the packing. He is considering the patient undergoing a PEG tube to assist with nutrition throughout this process that may be arranged to be done at the same time on Thursday. We discussed possibly doing an interrupted stay and I have talked this over with the clinical nursing director. The patient has been admitted for an acute in-hospital inpatient rehabilitation stay. She will be involved with the interdisciplinary acute inpatient rehabilitation program with goal maximizing her functional independence, so that she can hopefully return back to her prior living situation. Prognosis is reasonably good. We will have the multiple market intelligence consultant physicians continue to follow. She does meet diagnostic criteria for an acute in-hospital inpatient rehabilitation stay. She meets the medical necessity criteria. She does have [address] [address] HISTORY AND PHYSICAL Name: LINDA BARTLETT Room #: 505-P ADM IN M.R.#: [id number] Admission: 09/17/20 Attend Phys: Denny Cantu MD Discharge: Date of : 31 Report #: [id number] the tolerance for therapies and has appropriate discharge goals back to the home setting. By: [id number] Denny Cantu MD /enmanuel
[2020-09-16] MEDS ORDERED: AUGMENTIN400 MG/53 PER TUBE (08:48)
[2020-09-16] MEDS ORDERED: PROMS25 WY RECTAL (08:48)
[2020-09-16] MEDS ORDERED: DEEP SEA NASAL44 M1 NASAL (08:49)
[2020-09-16] MEDS ORDERED: PERIDEX 0.12%473 M1 SWISH&SPIT (08:49)
[2020-09-16] MEDS ORDERED: ONDANSETRON4 MG/2 M1 IV PUSH (08:50)
[2020-09-17 18:30] VITALS: BP 128/70
[2020-09-18 05:05] LABS: HEMATOCRIT 31.7 % (37.0-47.0); HEMOGLOBIN 10.3 gm/dL (12.0-15.0); MCH 30.2 pg (26.0-34.0); MCHC 32.5 g/dL (28.0-37.0); MCV 92.9 fL (80.0-100.0); RBC 3.41 mil/uL (4.20-5.00); RDW 14.3 % (10.5-14.5); WBC 8.6 thou/uL (4.0-11.0)
[2020-09-18 05:11] LABS: CALCIUM 10.3 mg/dL (8.5-10.1); CREATININE 1.2 mg/dL (0.6-1.0); POTASSIUM 4.7 mmol/L (3.5-5.1)
[2020-09-18 09:26] VITALS: BP 148/84
--- NOTE | 2020-09-18 10:04 | NUR ---
Assumed care on 09/17/20 @ 19:30, Awake, alert x1-2, confused. Oriented to person and situation. Denies pain. Sutures to Maxillary area noted. All other skin C/D/I, warm and appropriate color for race. DobHoff in R nasal nare. Patient pulled out DobHoff @ aproximately 2300, Order obtained from Carmen Aiken SLIP LASTER to reinsert. DobHoff reinserted by laborer tan house, KEVIN @ aproximately 0100. X-Ray KUB of abdomen obtained to verify placement Results obtained and placement verified. Jevity 1.5 set up and run @ 45 cc/hr. Patient on nectar thick liquid, with no straws allowed, and pureed food. Lung sounds diminished, oxygen @ 2.5L via n/c. Patient needs to be turned [id number]. Avina fall scale 80, Rocael scale 19.
--- NOTE | 2020-09-18 12:00 | NUR ---
chart review. cm visited pt and her spouse javi at bedside, he was feeding her lunch, noted she also has ng feeding going at 45ml/hr. cm cont to wear face mask and shield during visit. intro to cm , weekly team meeting, dme, and dcp. she was independent prior to hospital. live with 6 steps to enter home and 5 up to the bedrooms and bathroom. javi is retired and will be home with her. will cont following as needed for dc needs. possible going for peg and another surgery on thursday.
--- NOTE | 2020-09-18 12:44 | NUR ---
team meeting, reccommedation: pt on alerted feeding along with diet puree and nectar thick liquids. getting peg tub on thursday. shabana will need assist with meal. pt possible going for 2 surgery (peg and dr gonzalez to take out packing and work on mouth. Re team and cont therapy. anticipated los 12-14 days.
--- NOTE | 2020-09-18 18:55 | NUR ---
ASSUMED CARE AT 0700. PT HAD AN UNEVENTFUL NIGHT AND SLEPT FAIRLY WELL. TUBE FEEDING VIA DOBHOFF IN PROGRESS WITH GOAL RATE AT 45ML/HR. PT IS TOLERATING PO INTAKE AND ATE 50% FOR BREAKFAST AND LESS THAN 25% FOR LUNCH AND DINNER. ORDERS RECEIVED FOR NOCTURNAL TUBE FEEDING FROM 7-7A WITH WATER FLUSHES EVERY 6 HOURS. PT PARTICIPATED IN THERAPY WITH SLOW PROGRESSION. DR COOK SAW PT AND ORDERS RECEIVED TO REMOVE SUTURES FROM ORAL SITE AND COVER WITH STERISTRIPS. PLAN FOR SURGERY FOR REMOVAL OF PACKING AND PEG TUBE INSERTION ON THURSDAY. NPO ON THURSDAY MIDNIGHT. CONT TO MONITOR.
[2020-09-18 19:45] VITALS: BP 117/65
--- NOTE | 2020-09-19 04:42 | NUR ---
ASSUMED CARE APPROX 1900 EVENING 09/18. PT LYING IN BED AT CHANGE OF SHIFT SLEEPING. HOOKED UP TUBE FEEDING TO DOBHOFF, JEVITY 1.5 AT 40/HR. PT HAS BEEN SLEEPING WELL TOLERATING INFUSION. PT UP TO BATHROOM ONCE TONIGHT. BED ALARM ON AND CALL LIGHT IN REACH. WILL CONTINUE TO MONITOR.
[2020-09-19 08:00] VITALS: BP 124/68
--- NOTE | 2020-09-19 12:43 | NUR ---
ASSUMED CARE AT 0700. PATIENT IS ALERT AND ORIENTED X3. PATIENT STORY'S, AUTO DEALERSHIP PORTER ARE EQUAL. LUNGS ARE CLEAR AND DEMINISHED. ABD IS SOFT WITH BSX4. PATIENT IS UP WITH ASSIST OF 1 STAFF AND GAIT BELT. PATIENT HAS DOBBHOFF IN PLACE FOR T.F. AFTER 7 PM. PATIENT WILL CONTINUE ON 150 CC H20 BOLUS Q6 HRS. PATIENT IS ON PUREED DIET WITH NECTAR THICK LIQUIDS. URINE CULTURE SENT TO LAB. PLAN SURGERY ON FRI FOR PACKING REMOVEAL. FACIAL SUTURES INTACT. PATIENT CONTINUES ON ABT WITHOUT ADVERSE AFFFECTS VIA DOBBHOFF. FALL AND SAFETY PROTOCOLS IN PLACE. DENIES PAIN. CONTINUES TO PROGRESS SLOWLY TOWARDS D/C GOALS. WILL CONTINUE TO MONITER.
[2020-09-19 20:03] VITALS: BP 130/82
[2020-09-19 20:51] LABS: URINE BILIRUBIN NEGATIVE (Negative); URINE BLOOD NEGATIVE (Negative); URINE CLARITY CLEAR; URINE COLOR YELLOW; URINE GLUCOSE-RANDOM* NEGATIVE (Negative); URINE KETONES NEGATIVE (Negative); URINE LEUKOCYTES-REFLEX TRACE (Negative); URINE NITRITE-REFLEX NEGATIVE (Negative); URINE PROTEIN (DIPSTICK) NEGATIVE (Negative); URINE UROBILINOGEN 0.2 E.U./dl (0.2-1.0)
--- NOTE | 2020-09-20 01:47 | NUR ---
RIGHT FACIAL SUTURE INTACT, DOBHOFF IN PLACE EVEN PATIENT REMOVES BRACELETS. TOLERATING TUBE FEEDING SINCE 7P AND SCHEDULED Q 6 HOUR 150 CC WATER BOLUSES. PATIENT REQUESTING WATER AND TOLERATING 100 CC NECTAR THICK LIQUID WATER. CONTINENT OF URINE AND SMALL BM, UP TO BSC WITH MIN ASSIST TO STAND. O2 SAT 95% WITH PATIENT ON 1 LITER PNC. ANTICIPATING SURGERY ON THURSDAY AND INSTRUCTED THAT SHE WILL not HAVE LOVENOX AT BEDTIME TONIGHT (09/20) DUE TO SURGERY ON 09/21
[2020-09-20 06:18] LABS: HEMATOCRIT 29.3 % (37.0-47.0); HEMOGLOBIN 9.8 gm/dL (12.0-15.0); MCH 30.5 pg (26.0-34.0); MCHC 33.3 g/dL (28.0-37.0); MCV 91.6 fL (80.0-100.0); PLATELET COUNT 264 thou/uL (150-400); RDW 14.2 % (10.5-14.5); WBC 6.6 thou/uL (4.0-11.0)
[2020-09-20 06:43] LABS: CALCIUM 10.9 mg/dL (8.5-10.1); CREATININE 1.2 mg/dL (0.6-1.0); MAGNESIUM 2.8 mg/dL (1.8-2.4); POTASSIUM 4.4 mmol/L (3.5-5.1)
[2020-09-20 07:35] LABS: ABSOLUTE NEUTROPHILS 4.6 thou/uL (1.4-8.2); PLATELET ESTIMATE NORMAL
[2020-09-20 08:00] VITALS: BP 138/82
--- NOTE | 2020-09-20 11:12 | NUR ---
vendor choice form initiated and on pt chart. she will be going to acute later today for surgeries tomorrow.
--- NOTE | 2020-09-20 13:36 | NUR ---
SITTING IN RECLINER AT BEDSIDE MOST OF AM- AT BEDSIDE WELL AND WILL ASSSIT WITH EATING. DENIES C/O PAIN/DISCOMFORT. DENIES SOB/COUGH. NASAL COVID SWAB OBTAINED PER ANESTHESIA-REVIWED SURGICAL CONSENT WITH PATIENT AND AND SIGNED-INSTRUCTED ON NPO AFTER MIDNIGHT. REQUIRES ASSIST OF 1/ROLLER WALKER TO TRANSFER TO/FROM TOILET/BEDSIDE COMMODE. APPETTITE FAIR/POOR. DOES REPORT FEELING "A LITTLE NERVOUS" ABOUT SURGICAL PROCEDURE IN AM-RESPONDS TO SUPPORT/REASSURANCE FROM NURSING STAFF. WEARING 02 AT 2LITERS PER NC
--- NOTE | 2020-09-20 15:45 | NUR ---
60 CC FREE WATER ADMINISTERED Q 6 HOURS PER ORDER. UP TO USE TOILET OR GET INTO RECLINER WITH SBA X1,GAIT BELT AND ROLLER WALKER. MEDICATIONS CRUSHED AND PLACED IN APPLESAUCE. DENIES C/O PAIN/DISCOMFORT-VS WNL
--- NOTE | 2020-09-20 16:12 | NUR ---
INCREASED RESTLESSNESS AND CONFUSION NOTED AFTER 1529-RESTLESS,ATTEMPTING TO GET UP ON OWN-PULLING AT 02 TUBING AND NG TUBE-ANXIOUS FACIAL EXPRESSION. DENIES PAIN.DENIES NEEDING TO USE RESTROOM-LOOKING FREQUENTLY OUT IN HALLWAY STATING "THE DOCTOR IS HERE I THINK SHE WANTS TO TALK TO ME" LATER STATES "I HAVE TO GET GOING,IM LATE IM SUPPOSED TO MEET SOMEONE. THIS NURSE AT BEDSIDE TO PROVIDE SUPPORT,REASSURANCE,REORIENTATION
[2020-09-20 19:53] VITALS: BP 152/77
[2020-09-21] MEDS ORDERED: IPRAT-ALBUT 0.5-3 ML INH (07:52)
[2020-09-21] MEDS ORDERED: VENLAFAXINE H37.5 M1 PO (07:52)
[2020-09-21] MEDS ORDERED: PULMICORT0.5 MG/22 INH (07:52)
[2020-09-21] MEDS ORDERED: VITAMIN D325 MC1 PO (07:52)
[2020-09-21] MEDS ORDERED: AUGMENTIN400 MG/53 PER TUBE (07:52)
[2020-09-21] MEDS ORDERED: ENOXAPARIN30 MG/0.1 SUBQ (07:52)
[2020-09-21] MEDS ORDERED: PEPCID20 MG PO (07:52)
[2020-09-21 09:22] VITALS: BP 122/74
[2020-09-21 09:27] VITALS: BP 122/74
--- NOTE | 2020-09-21 10:50 | NUR ---
ASSUMED CARE AT 0700. PT HAD AN UNEVENTFUL NIGHT AND SLEPT WELL. PER NURSING PT REMOVED HER DOBHOFF EARLIER TODAY. SHE WAS LAST NPO SINCE MIDNIGHT. PT DENIES ANY PAIN AND VERBALIZES UNDERSTANDING OF HER SURGERY TODAY. SPOUSE AT BEDSIDE. REPORT GIVEN TO OR NURSE AND ORDERS RECEIVED TO GIVE HER AMLODIPINE ONLY FOR HER AM MEDS WITH SIPS OF WATER. SUTURES TO HER RIGHT CHEEK REMOVED ON THURSDAY AND SURGICAL SITE INTACT WITH NO SIGN OF INFLAMATION. PT SENT OUT TO OR AT 1015 ALONG WITH PT'S SPOUSE.
== END 2020-09-21 10:15 | disposition short-term general hospital (02) | DRG 947 ==
PROVIDERS: Nurse Practitioner; ADMIT Physical Medicine & Rehabilitation; ATTEND Physical Medicine & Rehabilitation
DX: R53.81 Other malaise (principal); J96.01 Acute respiratory failure with hypoxia; J18.9 Pneumonia, unspecified organism; C41.0 Malignant neoplasm of bones of skull and face; N17.9 Acute kidney failure, unspecified; E46 Unspecified protein-calorie malnutrition; D62 Acute posthemorrhagic anemia; I10 Essential (primary) hypertension; F32.9 Major depressive disorder, single episode, unspecified; E03.9 Hypothyroidism, unspecified; K59.00 Constipation, unspecified; R13.10 Dysphagia, unspecified; R42 Dizziness and giddiness; G47.33 Obstructive sleep apnea (adult) (pediatric); Z20.828 Contact with and (suspected) exposure to other viral communicable diseases; Z90.5 Acquired absence of kidney; Z68.23 Body mass index [BMI] 23.0-23.9, adult; Z88.6 Allergy status to analgesic agent; Z86.018 Personal history of other benign neoplasm; Z85.828 Personal history of other malignant neoplasm of skin
CPT/HCPCS: 10112

== ENCOUNTER 2020-09-21 10:20 | Inpatient (IN) | payer OTHER, MEDICARE ==
[2020-09-21] VITALS (12 sets, daily range): BP systolic 120–153; BP diastolic 72–88
[~2020-09-21] VITALS: Ht 162.6 cm; Wt 63.5 kg
[~2020-09-21 10:20] MED LIST changes: +AUGMENTIN400 MG/53 PER TUBE; +DEEP SEA NASAL44 M1 NASAL; +ENOXAPARIN30 MG/0.1 SUBQ; +IPRAT-ALBUT 0.5-3 ML INH; +ONDANSETRON4 MG/2 M1 IV PUSH; +PEPCID20 MG PO; +PERIDEX 0.12%473 M1 SWISH&SPIT; +PROMS25 WY RECTAL; +PULMICORT0.5 MG/22 INH; +VENLAFAXINE H37.5 M1 PO; +VITAMIN D325 MC1 PO
--- NOTE | 2020-09-21 15:20 | NUR ---
ASSESSMENT: CM REVIEWED CHART AND SPOKE WITH PT AND HER . PT WAS ADMITTED FROM DUE TO PEG TUBE PLACEMENT. PRIOR TO PATIENT LIVES AT HOME WITH HER . THEY HAVE 6 STEPS TO ENTER THE HOME WITH A HANDRAIL AND ABOUT 5 STEPS INSIDE. PT IS HAVING PEG TUBE PLACED AND THEN PLANS ARE TO DISCHARGE BACK TO ONCE MEDICALLY STABLE. FARTUN SPOKE WITH [facility] WHO REPORTS PT WILL HAVE AN INTERRUPTED STAY UP THERE AND THEY CAN ACCEPT HER BACK ONCE MEDICALLY READY. CONTACT [facility] AT [phone] OR CONTACT [phone] AND ASK FOR [facility]. PT MAY ADMIT TO OVER THE WEEKEND IF STABLE. PT AND ARE AGREEABLE WITH PLAN.
--- NOTE | 2020-09-21 15:34 | NUR ---
PATIENT TO RETURN TO [address] [place] [address]/ACUTE REHAB FOR ADMISSION WHEN MEDICALLY STABLE. ANTICIPATE ADMISSION OVER WEEKEND OF 09/22/20. GUEST RELATION OFFICER THRESHING OPERATOR PHONE NUMBER IS [phone].
--- NOTE | 2020-09-21 19:07 | NUR ---
Pt transferred from recovery room. Pt a&ox4. Denies pain. Peg tube in place. Contacted GI and tube feedings will be started tomorrow 09/22 and IV fluids will be stopped once tube feedings and water flushes are restarted. Pt will be transferred back to N over the weekend. Call light within reach. Fall precautions in place. Report given to kaylan STOUT.
[2020-09-22 04:49] VITALS: BP 132/71
[2020-09-22 05:51] LABS: ABSOLUTE NEUTROPHILS 5.6 thou/uL (1.4-8.2); BASOPHILS 0.2 % (0.0-2.0); EOSINOPHILS 0.1 % (0.0-3.0); HEMOGLOBIN 9.6 gm/dL (12.0-15.0); LYMPHOCYTES 8.9 % (24.0-44.0); MCH 30.5 pg (26.0-34.0); MCV 92.3 fL (80.0-100.0); MONOCYTES 9.2 % (1.0-8.0); PLATELET COUNT 278 thou/uL (150-400); POLYS 81.6 % (36.0-66.0); RBC 3.14 mil/uL (4.20-5.00); RDW 14.1 % (10.5-14.5); WBC 6.9 thou/uL (4.0-11.0)
[2020-09-22 06:05] LABS: CALCIUM 9.5 mg/dL (8.5-10.1); CREATININE 1.3 mg/dL (0.6-1.0); MAGNESIUM 2.4 mg/dL (1.8-2.4); POTASSIUM 4.7 mmol/L (3.5-5.1)
--- NOTE | 2020-09-22 06:25 | NUR ---
PT WAS DROWSY AT START OF SHIFT BUT EASILY AROUSABLE.UP WITH ASSIST X1 BSC.PT IS STRICT NPO.PEG TUBE FEEDING TO START TODAY WITH GOAL RATE OF 45ML/HR WITH WATER FLUSHES.DRSG TO HER ABD C/D/I.SCD TO BLE.PT CONT OF B&B.NO COMPLAINTS NOTED FROM PT SO FAR.CALL LIGHT WITHIN REACH.
[2020-09-22 08:20] VITALS: BP 120/69
--- NOTE | 2020-09-22 08:20 | NUR ---
PT LYING IN BED THIS AM. PT RUBBING ON STOMACH DRESSING. PT HAS PEG TUBE TO LEFT QUADRANT. NO SIGNS OF INFECTION. HARD TO UNDERSTAND PATIENT DUE TO POST MAXILLARY SURGERY, PT HAS CLIP BOARD AND PEN FOR COMMUNICATION. PT STRICTLY NPO, PT LIPS ARE DRY AND MOUTH MOISTURIZER APPLIED. PT HAS SCD'S. PT HAS OXYGEN ON 2L NC WITH SAT 93%, PT HAS HX OF SLEEP APNEA.
[2020-09-22 09:24] VITALS: BP 120/69
--- NOTE | 2020-09-22 09:28 | NUR ---
AT BEDSIDE. CHECKED RESIDUAL ON PEG TUBE WITH NO RETURN. GAVE MEDS CRUSHED IN TUBE, PT WAS NOT WANTING THIS BATTING MACHINE OPERATOR INSULATION TO GIVE HER ANYTHING IN TUBE. THERE TO REIENFORCE THAT THIS IS HOW SHE GETS MEDS AND FLUIDS. PT ALLOWED THIS NURSE TO GIVE MEDS.
--- NOTE | 2020-09-22 11:10 | NUR ---
STARTED JEVITIY 1.5 TUBE FEEDING AT THIS TIME. STARTED RATE 30ML. PT RESTING IN CHAIR WITH EYES CLOSED.
--- NOTE | 2020-09-22 12:55 | NUR ---
PT SITTING IN CHAIR, AT BEDSIDE. PT DENIES ANY NAUSEA OR PAIN TO ABD. CHANGED DRESSING AROUND PEG TUBE, AREA FREE OF REDDNESS OR DRAINAGE. APPLIED SPLIT DRESSING AND 4x4 GAUZE AND SECURED WITH TAPE.
--- NOTE | 2020-09-22 14:30 | NUR ---
PT TAKEN DOWN TO 5N VIA WHEELCHAIR. REPORT GIVEN TO MICHAEL LEONARD RN. PT VOIDED VIA BSC PRIOR TO GOING TO BED. PT CALL LIGHT AND PERSONAL ITEMS IN REACH, AT BEDSIDE.
--- NOTE | 2020-09-24 11:59 | O ---
[facility] [place] [address] OPERATIVE REPORT Name: LINDA BARTLETT Room #: 434-P [facility] IN M.R.#: [id number] Admission: 09/21/20 Attend Phys: Malachi Kaye MD Discharge: 09/22/20 Date of : 31 Report #: [id number] THIS REPORT FOR: cc: Gene Price MD, Jonathan MD Walton, Mark S. MD ~ CC: Vida Jefferson DDS DATE OF SERVICE: 09/21/2020 PREOPERATIVE DIAGNOSES: 1. Squamous cell carcinoma, right maxilla, status post maxillectomy on 09/11/2020. 2. Retained packing in place right maxilla. 3. Palatal obturator affixed to hard palate. POSTOPERATIVE DIAGNOSES: 1. Squamous cell carcinoma, right maxilla, status post maxillectomy on 09/11/2020. 2. Retained packing in place right maxilla. 3. Palatal obturator affixed to hard palate. OPERATION PERFORMED: 1. Removal of packing under general anesthesia. 2. Takedown hardware (screws) hard palate with removal of the obturator. 3. Placement of second stage maxillary obturator. SURGEON: Malachi Kaye M.D. ANESTHESIA: General endotracheal. INDICATIONS: The patient is an 89-year-old female who underwent a right maxillectomy, inferior structure on 09/11/2020 for squamous cell carcinoma. Surgical margins were clear and this was completely removed. The cavity including maxillary sinus and infratemporal fossa was packed with packing and an obturator placed and affixed to the hard palate with Synthes maxillofacial 12 mm screws. The patient returns today for removal of the obturator and packing. DESCRIPTION OF PROCEDURE: The patient was brought to the operating room and [address] [address] OPERATIVE REPORT Name: LINDA BARTLETT Room #: 434-P [facility] IN .R.#: [id number] Admission: 09/21/20 Attend Phys: Malachi Kaye MD Discharge: 09/22/20 Date of : 31 Report #: [id number] placed supine on the operating table. After adequate general anesthesia was achieved, Dr. Lim performed his procedure, placement of PEG tube. This will be dictated separately. After he was completed, she was turned 90 degrees. Shoulder roll was placed and neck was extended. The patient prepped and draped in a sterile fashion. The obturator that had been affixed to the palate with three 12-mm Synthes maxillofacial screws was then removed. All 3 screws were taken down and the obturator was removed. The packing in place in the maxillary sinus and infratemporal was then removed. This was 1-inch Nu Gauze slowly to prevent any bleeding. The whole mouth was then irrigated and suctioned and all the debris was then removed. The bony edges were granulating nicely. A small amount of cauterization was necessary, but this was minimal. There was no active bleeding. Once this was done, the wound was irrigated again. The patient had had a second stage obturator made by her dentist, Dr. Jefferson. By Dr. Jefferson, this was now placed in. This was slightly large and the superstructure. Using a ilir bur, this was then taken down to more customized just to her defect. Once this was done, the palatal obturator was removed, so that the patient could be extubated and returned to the recovery room in good condition. Sponge and needle counts were correct. There were no complications. Blood loss was about 5 mL. The patient will be in acute care overnight for monitoring and then transferred back to the rehab unit over the weekend. The patient will begin tube feedings via her PEG tube when this was okayed by Dr. Lim. <ELECTRONICALLY SIGNED> By: Malachi Kaye MD 09/24/20 1159 1303 1414 Malachi Kaye MD /nt
--- NOTE | 2020-09-28 09:53 | P ---
[facility] [place] [address] PROCEDURE REPORT Name: LINDA BARTLETT Room #: 434-P [facility] IN [facility].R.#: [id number] Admission: 09/21/20 Attend Phys: Malachi Kaye MD Discharge: 09/22/20 Date of : 31 Report #: [id number] THIS REPORT FOR: cc: Gene Price MD, Jonathan MD McElhinney, Christian C. MD ~ CC: Vida Kaye MD DATE OF SERVICE: 09/21/2020 PROCEDURE PERFORMED: Upper endoscopy with PEG tube placement. 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 She underwent a procedure with Dr. Kaye recently and has been on Dobbhoff tube feedings for nutritional support. Plan is for PEG tube placement. Dr. Kaye is to follow for removal of palatial screws and first stage obturator. PROCEDURE: The risks and benefits of the procedure were explained to the patient and her family, those risks including but not limited to bleeding, perforation, the risk of sedation. They understood these risks and gave informed consent. One gram of Ancef was given prior to the procedure. The procedure was performed in the operating room under general anesthesia. Next, using a standard Olympus upper endoscope, the scope was placed in the patient's mouth and advanced under direct vision through the esophagus, stomach and into the second portion of the duodenum. The esophagus was normal throughout. The GE junction was normal. Overall, the gastric mucosa was normal. The pylorus was normal and patent. The duodenal bulb, first and second portion were all normal. The scope was then brought back up into the patient's stomach and the stomach was fully insufflated with air. Good transillumination was noted through the anterior abdominal wall. This area was then marked and the skin was prepped with chlorhexidine solution. Next, a sterile drape was put in place. Next, Xylocaine was used as a local anesthetic. Next, using a seeker needle, the needle was advanced through the anterior abdominal wall into the gastric lumen under direct vision without difficulty. The needle was removed. Next, a 1 cm transverse incision was made through the skin. Next, a catheter needle was then advanced through the mid portion of the incision, again under direct vision into the gastric lumen. The needle was removed. Catheter remained in place. Next, a blue guidewire was advanced through the catheter and this was grasped with a snare through the endoscope and brought back up to the patient's mouth. Next, a 20-Armenian PEG tube was then secured to the blue guidewire and using a pull technique, was put into place without difficulty. The scope was reintroduced into the patient's stomach, the PEG tube bumper was noted to be in [address] [address] PROCEDURE REPORT Name: LINDA BARTLETT Room #: 434-P [facility] IN M.R.#: [id number] Admission: 09/21/20 Attend Phys: Malachi Kaye MD Discharge: 09/22/20 Date of : 31 Report #: [id number] good position in the mid body of the stomach. At this point, the scope was then withdrawn. The PEG tube was then secured to the anterior abdominal wall. The procedure was terminated. The patient tolerated the procedure well. IMPRESSION: Normal esophagus, stomach and duodenum status post PEG tube was described above. RECOMMENDATIONS: We will start using PEG tube for tube feedings tomorrow. Can use PEG tube this evening for meds if needed. Thank you for allowing me to participate in her care. <ELECTRONICALLY SIGNED> By: Solomon Lim MD 09/28/20 0953 [id number] Solomon Lim MD /nt
== END 2020-09-22 14:29 | DRG 495 ==
LOC: OR 10:20 → TBA 10:20 → 4S 14:01 → OR 14:02 → 4S 09-22 14:29
PROVIDERS: ADMIT Hospitalist; ATTEND Otolaryngology Plastic Surgery within the Head & Neck
PROC: 0NP Head and Facial Bones, Removal (ICD-10-PCS; principal; 2020-09-21)
PROC: 0CR Mouth and Throat, Replacement (ICD-10-PCS; principal; 2020-09-21)
PROC: 0DH63UZ Insertion of Feeding Device into Stomach, Percutaneous Approach (ICD-10-PCS; 2020-09-21)
DX: C41.0 Malignant neoplasm of bones of skull and face (principal); J96.01 Acute respiratory failure with hypoxia; N17.9 Acute kidney failure, unspecified; C05.0 Malignant neoplasm of hard palate; I10 Essential (primary) hypertension; E03.9 Hypothyroidism, unspecified; F32.9 Major depressive disorder, single episode, unspecified; R41.0 Disorientation, unspecified; E78.5 Hyperlipidemia, unspecified; G47.33 Obstructive sleep apnea (adult) (pediatric); Z85.828 Personal history of other malignant neoplasm of skin
CPT/HCPCS: 10102; 50010; 50101; 62110; 62900; 70005

== ENCOUNTER 2020-09-22 14:22 | Inpatient (IN) | payer OTHER, MEDICARE ==
--- NOTE | ~2020-09-22 | HC ---
[facility] [place] [address] CONSULTATION Name: LINDA BARTLETT Room #: 505-P ADM IN M.R.#: [id number] Admission: 09/22/20 Attend Phys: Denny Cantu MD Discharge: Date of : 31 Report #: [id number] THIS REPORT FOR: cc: Gene Price MD, Jonathan MD Deutch,Sumanth Marsh PhD ~ DATE OF SERVICE: 09/29/2020 NEUROBEHAVIORAL STATUS EXAM AGE: 89 ATTENDING PHYSICIAN: Denny Cantu MD EMERGENCY MEDICAL SERVICES COORDINATOR: Sumanth Jim, Ph.D. CLINICAL PRESENTATION: The patient is an 89-year-old female who was initially admitted to the [facility] for surgery for squamous cell carcinoma. She underwent a maxillectomy with graft and tooth extraction on 09/11/2020. She required oxygen support for mild respiratory failure. The patient was confused during the evening of her stay and pulled out her lines, but comprehension and cognition improved. She lives with her spouse in their home. Her assessment on admission to the rehabilitation unit was medical complexity with generalized debility; right maxillary squamous cell carcinoma, status post maxillectomy with graft, teeth extraction; acute respiratory failure with possible pneumonia; n.p.o. secondary to surgery on Dobhoff feedings; mild postoperative acute blood loss anemia; chronic vertigo; hypertension; and hypothyroidism. A complete description of her medical condition and history can be found in her medical record. Neuropsychological consultation was requested to provide assistance in the assessment of cognitive and emotional status and to provide recommendations and services. Prior to this most recent admission, she was living with her in their home. She has great deal of difficulty with communication because of issues associated with communication. The patient was unable to indicate the number of children that she has had. She was inaccurate in brief mental status questions concerning orientation to time. The patient is a left-handed. She was able to identify the season and name of the hospital, but could not identify the city. Naming was satisfactory. The patient was unable to copy a simple geometric design. She was also unable to complete clock drawing both creation and setting of hands at designated time. [facility] [address] [address] CONSULTATION Name: LINDA BARTLETT Room #: 505-P ADM IN M.R.#: [id number] Admission: 09/22/20 Attend Phys: Denny Cantu MD Discharge: Date of : 31 Report #: [id number] The patient is presenting with neurocognitive deficits. While she appears alert, orientation is likely to be inconsistent. Communication deficits make assessment difficult. A communication board will likely be of benefit. DIAGNOSTIC IMPRESSION: 1. 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 2. Adjustment disorder with anxiety and depressed mood. RECOMMENDATIONS: Consider use of an orientation board along with opportunities for her to rise in order to compensate for variability in expressive speech. Followup neuropsych assessment as needed to provide increased clarity regarding cognitive functioning. At this time, she will need assistance in verbal expression in order to clarify wants and needs Thank you very much for allowing me to provide the consultation on this patient. By: 1002 1029 Sumanth Jim, PhD /nt
[2020-09-22 14:50] VITALS: BP 122/70
--- NOTE | 2020-09-22 17:52 | NUR ---
Transferred from medical floor at approximately 1300. Alert, cooperative. Some frustration with trying to communicate d/t speech being difficult to understand d/t surgery. Breath sounds clear t/o. O2 sats mid 80s when asleep, increased to 96% on 2l FIO2 per NC. Reg HR auscultated. Color pink with brisk capillary refill and palpable peripheral pulses. NS infusing at 75ml/hr per infusion pump per L AC, site soft and flat without s/o infiltration. Yellow urine per commode per report. Active bowel sounds over soft rounded abdomen. FS Jevity infusing at 35 cc/hr per peg tube per pump, peg tube site without drainage, s/s infection, gauze drsg in place. AC [address] Cabrera r/t to tube feeding orders: how often to check residuals, how often to increase feeds, order for AC. Spoke with Dr. Cabrera, stated to contact dietition who will manage feeds. Spoke with nursing wind operations supervisor, states there is not a closer on rawhide bone roller, will have to contact Dr. Cabrera again for orders. Pt. resting at this time.
[2020-09-22 19:36] VITALS: BP 144/75
--- NOTE | 2020-09-23 05:15 | NUR ---
Patient is alert and oriented x1 or 2 with multiple episodes of confusion in which she is not aware of her sorrounding. Patient's speech is not clear due to her surgery in her mouth. At the beginning of shift, she was nervous and pulled out her IV line on the left AC region. A new line was inserted in the right AC region. Patient has a PEG tube on continous feeding with water bolus q6h, and with medications (before and after). Patient tolerates tube feeding and her night time medications. She is strictly NPO. Patient vitals were within normal expected ranges.
[2020-09-23 05:35] LABS: HEMATOCRIT 29.4 % (37.0-47.0); HEMOGLOBIN 9.7 gm/dL (12.0-15.0); MCH 30.4 pg (26.0-34.0); MCHC 32.8 g/dL (28.0-37.0); MCV 92.5 fL (80.0-100.0); RBC 3.18 mil/uL (4.20-5.00); RDW 14.1 % (10.5-14.5); WBC 9.8 thou/uL (4.0-11.0)
[2020-09-23 06:11] LABS: POTASSIUM 3.7 mmol/L (3.5-5.1)
--- NOTE | 2020-09-23 10:28 | NUR ---
ASSUMED CARE AT 0700. PATIENT IS ALERT AND ORIENTED TO PERSON ONLY. PATIENT CONFUSED. PATIENT IS NPO, PATIENT HAS G.T. FOR MEDS AND T.F. OF JEVITY AT 40CC/HR WITH H20 BOLUSES OF 200ML Q6 HRS. UP WITH P.T. TO AMBULATE IN THE HALLWAY. PATIENT INCONTINENT OF URINE. FALL AND SAFETY PROTOCOLS IN PLACE. DENIES PAIN AT THIS TIME. CONTINUES TO PROGRESS SLOWLY TOWARDS D/C GOALS. PLAN DEVICE INSERTION IN A.M. WHICH WILL HELP WITH SPEECH. WILL CONTINUE TO MONITER.
[2020-09-23 19:36] VITALS: BP 123/78
--- NOTE | 2020-09-24 19:21 | NUR ---
ASSUMED CARE OF PATIENT AT 0700. ENTERAL FEEDING ONGOING. G-TUBE PATENT. ALERT AND ORIENTED X3. DENIES PAIN OR DISCOMFORT. DR. COOK IN INSTRUCTED IN INSERTION AND REMOVAL OF DENTURE PLATE. TOLERATING DENTURE WELL. IS EASIER TO UNDERSTAND WITH PLATE INSERTED. COOPERATIVE WITH THERAPIES. CONTNUOUS TUBE FEEDING DISCONTINUED AND CHANGED TO BOLUS. TOLERATED WELL. UP IN CHAIR. AMBULATING WITH ASIST OF ONE PERSON. GAIT STEADY WITH WALKER.
[2020-09-24 20:05] VITALS: BP 139/73
--- NOTE | 2020-09-25 00:32 | NUR ---
PT ALERT AND ORIENTED X 3. PEG TUBE PATENT. BRANDON FEEDINGS WELL. DENTURES OUT DURING THE NIGHT. MEDS GIVEN PER PEG TUBE WITHOUT DIFFICULTY. PT NPO. PT DENIES PAIN OR DISCOMFORT. BED ALARM ON FOR SAFETY. PT APPEARS TO BE SLEEPING ON HOURLY ROUNDS.
[2020-09-25 07:27] VITALS: BP 130/75
--- NOTE | 2020-09-25 13:02 | NUR ---
PATIENT NOW WITH AN OBTURATOR IN PLACE AND PER PATIENT AND HER , SHE WAS TOLD BY HER ENT SHE CAN NOW HAVE SIPS OF WATER AND ICE CHIPS. ST ASSESSED SWALLOW THIS DATE AND DETERMINED NECTAR THICK WATER BY TEASPOON AMOUNTS SHOULD BE SAFE FOR THE PATIENT. ST RECOMMENDATIONS ARE FOR THE PATIENT TO REMAIN NPO FOR NOW WITH TUBE FEEDINGS HER PRIMARY SOURCE OF NUTRITION BUT ALLOW TSP SWALLOWS OF NECTAR THICK WATER SUPPLEMENTAL HYDRATION. ICE CHIPS SHOULD NOT BE GIVEN THE PATIENT CONTINUES TO BE AT HIGH RISK FOR ASPIRATION.
--- NOTE | 2020-09-25 13:13 | NUR ---
team meeting, reccommendation: oral care only with opturator in . on bolus tf, and will need education with shabana and . can have nectar thick teaspoon only with the opturator in place. dc 10/03/2020 [facility] ( pt, ot, st, nursing, sw ) need tf equip ordered. need fww. trainning with spouse of tf for home.
--- NOTE | 2020-09-25 19:36 | NUR ---
PT ALERT AND ORIENTED TIMES THREE SLOW TO RESPOND TO QUESTIONS. VSS. PEG TUBE IN PLACE. FEED ORDERED. MEDS GIVEN PER PEG. PT WORKED WELL WITH PT/OT. PT AT BEDSIDE FOR MOST OF THE SHIFT. PT PROGRESSING TOWRADS POC GOALS.
[2020-09-25 20:00] VITALS: BP 132/87
--- NOTE | 2020-09-26 04:16 | NUR ---
Assumed care of patient this pm shift. Patient alert and oriented x3. Patients peg tube in place. PM medications given via peg tube. Patient denies pain. Patient does not appear to be in any acute distress. Vital signs stable. Patient sleeping through the night. Ambulates via walker. We will continue to monitor per hospital policy.
[2020-09-26 08:00] VITALS: BP 149/83
--- NOTE | 2020-09-26 10:20 | NUR ---
cm visit with pt and spouse at bedside, cm cont to wear face mask and shield during visit. spouse has his mask on as well. shabana working with speech therapy. went over hh list of choice and dme company for home tube feeding. referral to be sent to [facility] for tf and fww. have the companies call me at [phone]. will cont following as needed for dc needs.
--- NOTE | 2020-09-26 13:48 | NUR ---
ASSUMED CARES AT 0700. PT AWAKE, ORIENTED TO PERSON, PLACE AND SITUATION. DENIES PAIN. VITALS REMAIN STABLE. MAXILLARY INCISION REMAINS DRY AND STERI-STRIPS ARE INTACT. PEG TUBE INTACT AND PATENT, SITE CLEANED AND DRESSING CHANGED. JEVITY 1.5 ADMINISTERED SCHEDULED WITH 150CC WATER FLUSHES, 35-45CC RESIDUE NOTED. PT DENIES NAUSEA. PT UP WITH 1 MIN ASSIST, GB AND WALKER AND TOLERATED WELL. Q1H VISUAL CHECKS. CALL LIGHT WITHIN REACH, AT THE BEDSIDE. FALL PRECAUTIONS IN PLACE
--- NOTE | 2020-09-26 17:33 | NUR ---
FAXED REFERRAL TO [facility] FOR ENTERAL FEEDING AT HOME RECEIVED CONFIRMATION AND WILL F/U WITH FALLON IN INTAKE AT [facility].
[2020-09-26 19:21] VITALS: BP 129/69
--- NOTE | 2020-09-27 06:49 | NUR ---
PATIENT IS ALERT AND ORIENTED X1 TO 2. HAS SLURRED SPEECH DUE TO SURGICAL PROCEDURE, BUT IS STILL PLEASANT FOR THE MOST PART. SHE STRUGGLES TO MAKE A CONVERSATION AND COULD GET FRUSTRATED AFTER MULTIPLE ATTEMPTS. ALL HER VITRALS WERE WITHIN NORMAL/EXPECTED RANGES.
--- NOTE | 2020-09-27 08:36 | NUR ---
PT LYING IN BED THIS AM AND AWAKE. PT DENIES ANY PAIN. PT PLEASANT AND STILL HAS ISSUES WITH COMMUNICATION ON PRONOUNCING WORDS. PT LUNGS CLEAR AND ON ROOM AIR. PT HAS BOWEL SOUNDS, NO COMPLAINTS OF FULLNESS TO ABD. PT PEG TUBE INTACT TO ABD AND CLAMPED WHEN NOT IN USE. PT TOLERATING BOLUS FEEDING, THIS AM PT HAD RESIDUAL OF 70ML OF GREEN BILE. PT ALSO STATED THATS BILE. PT UP WITH ASSISTANCE X1 WITH GAIT BELT AND WALKER.
[2020-09-27 08:37] VITALS: BP 138/82
--- NOTE | 2020-09-27 10:26 | NUR ---
SPOKE WITH KEVIN FROM [facility] REGARDING THE TUBE FEEDING REFERRAL THEY CAN ACCEPT AND REFERRAL FAXED ALSO FOR FWW THEY WILL DELIVER PRIOR TO DC 11/.
--- NOTE | 2020-09-27 12:51 | NUR ---
CHECKED RESIDUAL FOR PT PRIOR TO FEEDING. PT DIDN'T HAVE ANY RESIDUAL. NOTICED UNABLE TO FREE FLOW JEVIITY INTO TUBE, ADDED WATER TO JEVITY AND STILL UNABLE TO FLOW TO GRAVITY. CHECKED TUBE AND WAS KINKED CLOSER TO ABD. UNCLAMPED TUBE AND WAS ABLE TO FREE FLOW JEVITY INTO PEG TUBE. AT BEDSIDE OBSERVING. TEACHING HIM HOW TO GIVE JEVITY AND WATER. PT TOLERATED WELL.
--- NOTE | 2020-09-27 15:29 | NUR ---
PT RESTING IN RECLINER CHAIR, AT BEDSIDE. PT HAS BEEN TOLERATING BOLUS OF JEVITY. PT TAKING SIPS OF THICKENED LIQUIDS WITH A SPOON. PT VOIDED IN BATHROOM WITH ASSISTANCE X1 WITHOUT WALKER AND GAIT BELT.
--- NOTE | 2020-09-27 16:00 | NUR ---
PT HAS AROUND 200ML OF RESIDUAL WHEN ATTEMPTING TO FEED PT WITH JEVITY. WILL HOLD FOR NOW.
[2020-09-27 16:25] VITALS: BP 119/76
--- NOTE | 2020-09-27 18:01 | NUR ---
NURSING STUDENTS HERE AND TRIED TO ADM 1800 BOLUS, PT STILL HAS AROUND 175ML IN RESIDUAL, WILL RECHECK IN AND HOUR.
[2020-09-27 19:27] VITALS: BP 141/77
[2020-09-27 19:32] VITALS: BP 137/60
--- NOTE | 2020-09-28 03:52 | NUR ---
ASSUMED CARE APPROX 1900 EVENING 09/27. PT SITTING UP IN RECLINER AT CHANGE OF SHIFT. ASSISTED PT INTO GOWN AND INTO BED. PT NPO. PT GIVEN BOLUS FEEDING PER PEG TUBE WITH RESIDUAL OF 100. PT APPEARS TO BE SLEEPING SOUNDLY WITH HOURLY ROUNDING CHECKS. BED ALARM ON AND CALL LIGHT IN REACH. WILL CONTINUE TO MONITOR.
[2020-09-28 07:30] VITALS: BP 118/77
--- NOTE | 2020-09-28 10:44 | NUR ---
ASSUMED CARE AT 0700. PT HAD AN UNEVENTFUL NIGHT AND SLEPT FAIRLY WELL. PT IS ALERT AND ORIENTATED X 3. SPEECH IS UNCLEAR DUE TO MOUTH SURGERY. PT IS NPO AND IS ON BOLUS FEEDING X 5. HER RESIDUAL IS FROM 100 - 110 ML PRIOR FEEDING. MECHANICAL ENGINEERING PROFESSOR NOTED, OK TO CONT UNLESS PT HAVING SYMPTOMS OR ABOVE 200. PT IS UP WITH MIN ASSIST WITH A WALKER AND PARTICIPATING WITH THERAPY. SPOKE TO [employer] SALES MERCHANDISE ASSOCIATE WITH [facility] AND AGREES WITH ABOVE PLAN ON RESIDUAL. HAD A SMALL BM TODAY. DIURESING ADEQUATELY. PEG TUBE CLAMPED AND FLUSHED PROTOCOL. DRESSING CHANGES DONE TO SITE. NOT SIGN OF INFLAMMATION OR REDNESS AROUND INCISION. CONT TO MONITOR.
[2020-09-28 15:45] VITALS: BP 122/78
[2020-09-28 20:00] VITALS: BP 135/77
--- NOTE | 2020-09-29 01:24 | NUR ---
assumed care approx 1900 evening 09/28. pt lying in bed at change of shift dozing off and on. peg tube intact and meds crushed and given per peg. pt remains NPO. pt denies complaints. pt appears to be sleeping soundly with hourly rounding checks. bed alarm on and call light in reach. will continue to monitor.
[2020-09-29 07:36] VITALS: BP 121/68
--- NOTE | 2020-09-29 12:28 | NUR ---
ASSUMED CARE AT 0700. PT HAD AN UNEVENTFUL NIGHT AND SLEPT WELL. ALERT AND ORIENTATED. DENIES ANY PAIN. PARTICIPATED WITH THERAPY. NPO. OBTURATOR PLACED AND OK PER ST TO HAVE SPOONFUL OF NECTAR ONLY. PEG TUBE RESIDUAL CHECK WAS 90 ML PRIOR MEDICATIONS AND 25 ML PRIOR BOLUS FEEDING AT 1100. PT IS TOLERATING FEEDING. INCISION IS CLEAN WITH STERISTRIPS. PEG TUBE INCISION SITE DRESSING CHANGED. NO INFLAMMATION OR REDNESS NOTED. CONT TO MONITOR.
[2020-09-29 22:00] VITALS: BP 130/77
--- NOTE | 2020-09-29 22:20 | NUR ---
20 CC RESIDUAL, TOLERATING CARTON OF JEVITY 1.5 WITH 175 CC WATER AND HS MEDS. THROUGH PEG TUBE. UP TO TOILET WITH STANDBY ASSIST FOR LARGE VOID AND SMALL BM, ABLE TO WIPE HERSELF. PLEASANT AND TURNING SELF TO SIDE.
[2020-09-30 08:00] VITALS: BP 129/66
--- NOTE | 2020-09-30 11:38 | NUR ---
ASSUMED CARE OF PT AT 0715. PT IS A&OX4. IS ON ROOM AIR. IS STABLE. DENIES MOUTH PAIN OR OTHER PAIN. AM CARES COMPLETED, INCLUDING ORAL CARE. PARTIAL PLATE IN PLACE. ABD BINDER APPLIED. PEG TUBE INTACT. FLUSHING APPROPRIATELY. RECEIVING JEVITY 1.5 ML 5X/DAY WITH 175 ML OF WATER BOLUS POST FEEDING. PT IS NPO EXCEPT FOR SPOONFULS OF NECTAR THICK FLUIDS ONLY. IS UP WITH 1 ASSIST, GB, WALKER. FALL PRECAUTIONS & HOURLY ROUNDING CONTINUEED THIS SHIFT. LABS & VITALS REVIEWED. PT IS CURRENTLY WORKING WITH PHYSICAL THERAPY. SPOUSE AT BESIDE. WILL CONTINUE TO MONITOR.
[2020-09-30 20:02] VITALS: BP 139/94
--- NOTE | 2020-10-01 03:00 | NUR ---
assumed care approx 1900 evening 09/30. pt sitting up in recliner resting at change of shift. assisted pt into gown, go to bathroom before hs. peg tube intact and pt given bolus as ordered. pt NPO and tolerating tube feeding. pt appears to be sleeping soundly with hourly rounding checks. bed alarm on and call light in reach. will continue to monitor.
[2020-10-01 07:27] VITALS: BP 130/77
--- NOTE | 2020-10-01 12:33 | NUR ---
ASSUMED CARE AT 0700. PT HAD AN UNEVENTFUL NIGHT AND SLEPT WELL. PT IS ALERT AND ORIENTATED, HARD TO COMPREHEND HER SPEECH DUE TO RECENT ORAL SURGERY. DENIES ANY PAIN. PARTICIPATING WITH THERAPY. NPO AND IS ON TUBE FEEDING. TOLERATING FEEDING WELL WITH MIN RESIDUAL. PLAN FOR DC HOME ON THURSDAY. DRE SYSTEM ADMIN WANTS NURSING TO TEACH SPOUSE ABOUT MEDS CRUSHED AND TUBE FEEDING. SPOUSE WILL STAY TILL AFTER 2PM TODAY AND THIS NURSE WILL EDUCATE ON TUBE FEEDING.
--- NOTE | 2020-10-01 17:22 | NUR ---
RECEIVED CALL FROM FALLON FROM [facility] FOR TUBE FEEDING AT HOME SHE HAS EVERYTHING ARRANGED WILL FAX MEDICAL NECESSITY FORM FOR DR CIFUENTES TO FILL OUT.
[2020-10-01 19:40] VITALS: BP 132/83
--- NOTE | 2020-10-01 21:20 | NUR ---
ASSUMED CARE OF PT AT 1915. PT IS A&OX4. IS ON ROOM AIR. DENIES MOUTH PAIN. PARTIAL IN DENTURE CUP IN BATHROOM. IS STABLE. PEG TUBE INTACT WITH DRSG. FLUSHING WELL. MEDS TOLERATED WELL. PT REFUSED TONIGHTS FEEDING. EDUCATION PROVIDED. REPORTED BEING SATISFIED. PT IS UP WITH 1 ASSIST, GB, WALKER. FALL PRECAUTIONS & HOURLY ROUNDING CONTINUED THIS SHIFT. CURRENTLY IN BED SLEEPING. CALL LIGHT WITHIN REACH. WILL CONTINUE TO MONITOR.
[2020-10-02 05:38] LABS: HEMATOCRIT 31.6 % (37.0-47.0); HEMOGLOBIN 10.4 gm/dL (12.0-15.0); MCH 30.3 pg (26.0-34.0); MCHC 33.1 g/dL (28.0-37.0); MCV 91.7 fL (80.0-100.0); PLATELET COUNT 251 thou/uL (150-400); RBC 3.44 mil/uL (4.20-5.00); RDW 14.4 % (10.5-14.5); WBC 5.5 thou/uL (4.0-11.0)
[2020-10-02 05:42] LABS: CALCIUM 9.7 mg/dL (8.5-10.1); CREATININE 1.1 mg/dL (0.6-1.0); MAGNESIUM 2.1 mg/dL (1.8-2.4); POTASSIUM 4.8 mmol/L (3.5-5.1)
[2020-10-02 08:00] VITALS: BP 113/74
[2020-10-02 08:17] LABS: ABSOLUTE NEUTROPHILS 3.1 thou/uL (1.4-8.2)
[2020-10-02 08:19] LABS: ANISOCYTOSIS 1+
--- NOTE | 2020-10-02 12:44 | NUR ---
Assumed care of patient at 0700. Alert and oriented X4. Has obturator in place. Peg tube in place. dressing dry. tube patent. Educated on crushing medications and administration through peg tube. demonstrated and verbalized the procedure. completed Jevity 1.5 tube feeding using proper procedure. says he feels confident doing this at home. Up and dressed. Patient says she is happy to be discharged tomorrow. Peg tube residuaL at 50 cc. No complaints voiced.
--- NOTE | 2020-10-02 12:51 | NUR ---
team meeting, reccommendation: cont with dc 4th, tomorrow, [facility] ( pt, ot, st, nursing) fww and tube feeding from [facility] [place]. npo with spoon sips of thicken water. education with spouse on medication and tube feeding. outpt appointment.
--- NOTE | 2020-10-02 16:30 | NUR ---
FAXED SCRIPTS FOR T.F AND MED NECESSITY FORM AND SCRIPT FOR FWW TO [facility] RECEIVED CONFIRMATION.
[2020-10-02 19:20] VITALS: BP 138/81
--- NOTE | 2020-10-02 20:28 | NUR ---
Assumed care on 10/02/20 @ 19:15, in bed, awakens to voice, A&Ox4, obturator removed in in cup at bedside. Somewhat difficult to understand speach, upon repetition, pt able to make herself understood. Peg tube intact. Able to drink nectar thickened water by the spoonful. All other meds and Jevity 1.5 via peg tube. Call light within reach.
[2020-10-03 09:02] VITALS: BP 114/70
[2020-10-03 09:48] VITALS: BP 114/70
--- NOTE | 2020-10-03 10:06 | NUR ---
PATIENT IS ALERT AND ORIENTED X 3-4, ABLE TO VOICE NEED WITH LOTS OF REPETITION DUE TO MAXILARRY ISSUES. LCTA, RESP EVEN/UNLABORED, NO SOA/CYANOSIS NOTED. BS+X4, ABD SOFT, NON-TENDER TO TOUCH. PEG TUBE PATENT, NO RESIDUALS NOTED. MEDICATION CRUSHED, AND TUBE FEEDING GIVEN VIA PEG TUBE, WELL TOLERATED. PATIENT IS BEING DISCHARGED TODAY, DISCHARGE INTRUCTIONS REVIEWED WITH PATIENT AND SPOUSE, THEY VERBALIZES UNDERSTANDING, AND SIGNED PAPER WORK. PATIENT IS READY TO BE DISCHARGED, AWAITING DELIVERY OF WALKER BY [facility]. NO SIGN OF ACUTE DISTRESS NOTED, CALL LIGHT IN REACH, WILL MONITOR FOR SAFETY.
--- NOTE | 2020-10-03 15:24 | NUR ---
PT DISCHARGING TODAY TO HOME WITH [facility] FAXED DC ORDERS/SUMMARY SPOKE WITH ELROY IN INTAKE SHE RECEIVED ORDERS AND WILL NOTIFY PT TO SET UP VISITS. PT ALSO RECEIVED FWW FROM [facility] AND THEY WILL ALSO HANDLE PT'S TUBE FEEDING SUPPLIES.
== END 2020-10-03 11:30 | disposition home health service (06) | DRG 947 ==
PROVIDERS: Nurse Practitioner; Nurse Practitioner Family; ADMIT Physical Medicine & Rehabilitation; ATTEND Physical Medicine & Rehabilitation
DX: R53.81 Other malaise (principal); J96.01 Acute respiratory failure with hypoxia; C41.0 Malignant neoplasm of bones of skull and face; D62 Acute posthemorrhagic anemia; R13.10 Dysphagia, unspecified; I10 Essential (primary) hypertension; E03.9 Hypothyroidism, unspecified; K59.00 Constipation, unspecified
CPT/HCPCS: 10112

== ENCOUNTER → 2020-12-25 | Outpatient (CLI) | payer OTHER, MEDICARE ==
[2020-12-25 11:57] LABS: HEMATOCRIT 45.6 % (37.0-47.0); HEMOGLOBIN 14.8 gm/dL (12.0-15.0); MCH 29.2 pg (26.0-34.0); MCHC 32.5 g/dL (28.0-37.0); MCV 89.8 fL (80.0-100.0); RBC 5.07 mil/uL (4.20-5.00)
--- NOTE | 2020-12-25 12:06 | EKG ---
[place] [address] [address] [facility] [place] [address] ELECTROCARDIOGRAM REPORT Name: LINDA BARTLETT [id number] Admission: 12/25/20 Attend Phys: Malachi Kaye MD Discharge: Date of : 31 Report #: [id number] [facility] Test Date: 2020-12-25 Test Time: 11:53:39 Pat Name: ILNDA BARTLETT Department: Room: Gender: F [facility] 1930 Requested By: Malachi Kaye Order Number: [id number] : Jimenez Grace Measurements Intervals [place] Rate: 69 P: 8 FL: 193 QRS: -44 QRSD: 90 T: 30 QT: 409 QTc: 438 Interpretive Statements Sinus rhythm Left anterior fascicular block Abnormal R-wave progression, late transition Left ventricular hypertrophy No previous ECG available for comparison Electronically Signed On 12-25-2020 12:06:09 [employer] by Jimenez Grace [email or web address] <ELECTRONICALLY SIGNED> By: Jimenez Grace MD 12/25/20 1206 D: [id number] Jimenez Grace MD /DAVID
[2020-12-25 12:13] LABS: ALBUMIN 3.8 g/dL (3.4-5.0); CALCIUM 10.6 mg/dL (8.5-10.1); CREATININE 1.1 mg/dL (0.6-1.0); DIRECT BILIRUBIN 0.1 mg/dL (<0.1-0.2); POTASSIUM 4.4 mmol/L (3.5-5.1); TOTAL BILIRUBIN 0.5 mg/dL (0.2-1.0); TOTAL PROTEIN 7.9 g/dL (6.4-8.2)
== END ==
LOC: CV 11:01
PROVIDERS: ATTEND Otolaryngology Plastic Surgery within the Head & Neck
DX: C03.0 Malignant neoplasm of upper gum (principal); C79.89 Secondary malignant neoplasm of other specified sites; I49.9 Cardiac arrhythmia, unspecified; I44.4 Left anterior fascicular block; I51.7 Cardiomegaly; Z93.1 Gastrostomy status

== ENCOUNTER → 2021-01-07 | Outpatient (CLI) | payer OTHER, MEDICARE ==
[~2021-01-07] MED LIST changes: +B COMPLEX1 EACH PER TUBE; -B COMPLEX1 EACH PO; +CRESTOR20 MG PER TUBE; -CRESTOR20 MG PO; +JEVITY 1 CAL237 ML PER TUBE; -LEVOTHYROXIN0.075 MG PO; +NORVASC5 MG PER TUBE; -NORVASC5 MG PO; +PERIDEX15 ML; +PROLIA60 MG/1 ML SUBQ; +SERTRALINE HCL100 MG PER TUBE; -SERTRALINE HCL100 MG PO; +SYNTHROID75 MCG PER TUBE; +VITAMIN D325 MC4 PER TUBE; +WATER3780 ML PER TUBE
== END ==
LOC: LAB 13:53
PROVIDERS: ATTEND Otolaryngology Plastic Surgery within the Head & Neck
DX: U07.1 COVID-19 (principal)

== ENCOUNTER 2021-01-23 06:08 | Inpatient (IN) | payer OTHER, MEDICARE ==
[~2021-01-23] VITALS: Ht 160 cm; Wt 60.8 kg
[2021-01-23 07:15] VITALS: BP 135/72
[2021-01-23 15:10] LABS: ALBUMIN 3.4 g/dL (3.4-5.0); MAGNESIUM 1.9 mg/dL (1.8-2.4)
[2021-01-23 16:30] VITALS: BP 175/102
[2021-01-23 16:45] VITALS: BP 164/97
[2021-01-23 16:58] VITALS: BP 151/96
--- NOTE | 2021-01-23 18:01 | NUR ---
Pt came to unit from recovery room approx 1630. A&ox4. Denies pain. Dressing c/d/i. B[place] drain in place. Family at bedside. IVF infusing. Tube feeding started. Admission completed. NPO. Medications tu be given per PEG tube. Fall precautions in place. Will continue to monitor.
[2021-01-23 18:50] VITALS: BP 127/87
--- NOTE | 2021-01-24 | NUR ---
ASSESSMENT COMPLETED. PT IS ALERT AND ORIENTED. NECK INCISION SITE LOOKS CLEAN, ICE AVIVA IN PLACE. GENTLE ORAL CARE PROVIDED. PT WAS A LITTLE ANXIOUS AT BEDTIME, SPOKE TO ON THE PHONE, REASSURANCE PROVIDED AND SHE SEEMS TO HAVE SETTLED DOWN. MEDS GIVEN VIA PEG, TUBE FEEDINGS GOING AT 40/HR, REDIDUAL AT HS WAS 150 CC, SO SCHEDULED WATER FLUSHES NOT GIVEN AT MIDNOC. PT IS AFEBRILE. COMMUNICATING WELL VIA WRITING.CALCIUM LAST CHECK AT 8.1, SUPPLEMENTATION GIVEN. CALL LIGHT WITHIN REACH. WILL CONTINUE WITH POC TILL EOS.
[2021-01-24 03:48] VITALS: BP 110/68
[2021-01-24 06:09] LABS: HEMATOCRIT 36.4 % (37.0-47.0); HEMOGLOBIN 11.9 gm/dL (12.0-15.0); MCH 29.4 pg (26.0-34.0); MCHC 32.6 g/dL (28.0-37.0); MCV 90.1 fL (80.0-100.0); RBC 4.04 mil/uL (4.20-5.00); RDW 16.7 % (10.5-14.5); WBC 7.2 thou/uL (4.0-11.0)
[2021-01-24 06:16] LABS: CALCIUM 8.4 mg/dL (8.5-10.1); CREATININE 1.3 mg/dL (0.6-1.0); POTASSIUM 4.4 mmol/L (3.5-5.1)
[2021-01-24 08:04] VITALS: BP 123/67
[2021-01-24 08:17] VITALS: BP 113/67
--- NOTE | 2021-01-24 12:42 | O ---
[facility] [place] [address] OPERATIVE REPORT Name: LINDA BARTLETT Room #: 442-P ADM Mumtaz M.R.#: [id number] Admission: 01/23/21 Attend Phys: Malachi Kaye MD Discharge: Date of : 31 Report #: [id number] THIS REPORT FOR: cc: Gene Price MD,Gene Kaye,Malachi Esposito MD ~ DATE OF SERVICE: 01/23/2021 PREOPERATIVE DIAGNOSES: 1. 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 2. Recurrent squamous cell carcinoma, maxillary alveolar ridge involving anterior teeth. 3. History of right maxillary superstructure maxillectomy, 08/24/2020. POSTOPERATIVE DIAGNOSES: 1. 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 2. Recurrent squamous cell carcinoma, maxillary alveolar ridge involving anterior teeth. 3. History of right maxillary superstructure maxillectomy, 08/24/2020. OPERATION PERFORMED: 1. Total thyroidectomy with removal of mediastinal mass, cervical approach. 2. Nerve integrity monitoring x 2 hours. 3. Anterior maxillectomy. 4. Extraction of teeth #9, #10, #11, #12, and #13. 5. Palatal flap advancement reconstruction, anterior maxilla. SURGEON: Malachi Kaye M.D. ANESTHESIA: General endotracheal. INDICATIONS: The patient is an 89-year-old female who presented initially with a massive verrucous mass of her right palate and maxilla that had been multiply biopsied. She was seen by me initially in 04/2020. Concern for squamous cell carcinoma. Initial biopsy was negative. A biopsy was done under anesthesia confirming clinical suspicion of squamous cell carcinoma and the patient ultimately was brought to anesthesia for superstructure maxillectomy on the right, 08/24/2020. Margins at that time were clear. The patient has been followed aggressively. Followup PET scan showed an uptake in the patient's left lobe of thyroid. She has known thyroid mass that had been worked up with ultrasound and biopsy, which had been negative. In addition, she was found to have a clinical recurrence along the anterior maxillary teeth #9 and #10 and possibly #11. This was confirmed by biopsy in the office. For that reason, she was recommended anterior maxillectomy and total thyroidectomy. [facility] [address] [place] [address] OPERATIVE REPORT Name: LINDA BARTLETT Room #: 442-P [facility] Mumtaz Garza#: [id number] Admission: 01/23/21 Attend Phys: Malachi Kaye MD Discharge: Date of : 31 Report #: [id number] DESCRIPTION OF PROCEDURE: The patient was brought to the operating room and placed supine on the operating room table. After adequate general anesthesia was achieved via an endotracheal intubation with a nerve integrity monitoring endotracheal tube, she was turned to 180 degrees. Shoulder roll was placed, the neck was extended. The procedure was marked out in a relaxed skin tension line above the manubrium and injected with 1% Xylocaine with 1:100,000 epinephrine. As a separate part of the procedure, the Xomed nerve integrity monitor was applied to the leads from the endotracheal tube. Separate grounds were placed in the soft tissue overlying the sternum and contralateral shoulder. Electrode resistance and impedance was measured and found to be acceptable. Threshold and stimulus intensity parameters were set and the patient was monitored for the entirety of the case for approximately 2 hours for the thyroid portion. She was then prepped and draped in a sterile fashion. The procedure began with an incision through skin and subcutaneous tissue and platysma. Subplatysmal flaps were elevated superiorly and inferiorly and dissection was made down to the strap muscles. These were divided vertically in the midline and retracted laterally. Beginning on the left side with the large mass, dissection then began first superiorly. There was a pyramidal lobe that had a mass measuring about 1 cm to the right of midline. Beginning on the left, the superior vessels were sequentially identified, clamped between Ligaclips and divided. Middle thyroid vein was taken down between Ligaclips and then dissection began inferiorly. This mass extended off the inferior portion of the thyroid into the upper mediastinum. With finger dissection, this was able to be mobilized up into the neck with complete removal. This allowed me to see the inferior vessels. These were sequentially identified, clamped between Ligaclips and divided. The inferior parathyroid was identified and the running with the inferior thyroid artery on this side and preserved. Superior parathyroid was attached to the capsule, dissected free and preserved. The recurrent nerve was found in its usual anatomic position and tracked superiorly to the cricothyroid joint. Keeping the nerve in direct vision, Laguerre's ligament was taken down. The isthmus was then divided off the trachea with harmonic hugo and this lobe delivered off the field as specimen to pathology for frozen section. Hemostasis with bipolar cautery. The nerve was stimulated and found to be intact. Attention was then turned to the right lobe. Beginning superiorly, the superior vessels were sequentially identified, clamped between Ligaclips and divided. Middle thyroid vein was taken down between Ligaclips. The inferior vessels were sequentially identified, clamped between Ligaclips and divided. This gland was rolled up on to the trachea. Dissection in the tracheoesophageal groove revealed the recurrent nerve. This was tracked superiorly to the cricothyroid joint. Laguerre's ligament was taken down sharply and this lobe was delivered off the field with the pyramidal lobe mass as well. Hemostasis again with bipolar [facility] [address] [place] [address] OPERATIVE REPORT Name: LINDA BARTLETT Room #: 442-P ADM Mumtaz M.RRuth#: [id number] Admission: 01/23/21 Attend Phys: Malachi Kaye MD Discharge: Date of : 31 Report #: [id number] cautery and clip ligature. Wound was then irrigated. This nerve on the right was then stimulated and found to be intact. Powdered Nii was placed opposite to each cricothyroid joint and then a 10-Bulgarian Walt drain was placed through a separate stab incision, curled into the wound and connected to bulb suction. The drain was sutured in place with 2-0 silk. The strap muscles were then closed with interrupted 3-0 Vicryl. A 3-0 Vicryl was used to close the platysmal layers and then a 4-0 Vicryl deep dermal suture was used to close skin. A 5-0 Prolene was then placed followed by Mastisol, 1/4 inch Steri-Strips and Op-Site. The drain was connected to bulb suction. This completed the thyroid portion. The pathologist returned during the dissection and said that the pathology was consistent with a follicular lesion. Final diagnosis was deferred to permanent sections. Attention was then turned to the oral cavity. The oral cavity was then prepped with Betadine and toothbrush. A biteblock was then placed and attention then turned to the oral cavity. Using a caliper, 10 mm margins were then taken around the gross tumor, both on the alveolar ridge to the hard palate and then posteriorly. This brought me back to tooth #13. The incisions were then made on the 10 mm margin. Then, distal from that, another 1-2 mm margin was taken of mucosa off the patient for margins. A lip margin was taken. A palatal margin taken and then an anterior margin at 3 o'clock in the midline and a distal margin at 9 o'clock just anterior to #14. So these margins were delivered off the field as to pathology while this was pending. Sagittal cuts were then made just anterior to #14 and the socket from #13. This allowed placement of a Gigli saw and using a Gigli saw, the entire alveolar ridge was then removed where the cuts have been made in the mucosa. This contained tooth #9, #10, #11 and #12. The anterior was then marked with a 2-0 silk at the midline at 3 o'clock and delivered off the field as a specimen. There were a couple of tooth roots that had been amputated that were barely in the maxilla. These were removed separately for biopsy. This remaining alveolar ridge then was taken down with a 5 mm fluted and a 4 mm coarse ilir bit leveling this to the floor of nose and the anterior palate. Complete removal was made as an additional bony margin. During this time, all margins then were returned that had been taken circumferentially around the excision as negative. The most concern was the anterior margin at 3 o'clock, which is in the midline. This was negative for recurrent cancer. Once this was completed there, mobilization was done of the mucosa on the hard palate as well as the lip. Once the maxillectomy had been completed anteriorly and to the left of midline down to #14. The mucosa was then advanced towards the palatal flap in order to provide closure to the lip mucosa just under the floor of nose. This was closed with interrupted 3-0 chromic sutures. This was left open to drain. Complete closure could not be achieved and especially the tooth socket and anteriorly were left to granulate by secondary intention. Prior to this, hemostasis was assured with bipolar [facility] [address] [place] [address] OPERATIVE REPORT Name: LINDA BARTLETT Room #: 442-P [facility] Mumtaz Garza#: [id number] Admission: 01/23/21 Attend Phys: Mlaachi Kaye MD Discharge: Date of : 31 Report #: [id number] cauterization as well as Bovie cautery. The wound was then irrigated copiously. The biteblock was then removed as well as all gauze from the area. Examination was then made of the maxillary cavity from July, there was no evidence of recurrent tumor present nor was there any evidence of recurrent tumor present on PET scan. At this point, the patient was returned to anesthesia, awake without difficulty, returned to recovery in good condition. Sponge and needle counts were correct. There were no complications. Blood loss was about 300 mL. She will be watched at least overnight for monitoring and likely be in the hospital for 48 hours. DISCHARGE MEDICATIONS: Will include Augmentin oral suspension 250/5 10 mL t.i.d. for 10 days, hydrocodone/acetaminophen 7.5/325 one to two q.4-6 hours p.r.n., ondansetron ODT 4 mg tablets one p.o. q.4-6 hours p.r.n. She is instructed on light activity and soft diet. She will continue nutrition via her PEG tube. <ELECTRONICALLY SIGNED> By: Malachi Kaye MD 01/24/21 [id number] Malachi Kaye MD /nt
--- NOTE | 2021-01-24 14:03 | NUR ---
ASSESSMENT: CM REVIEWED CHART AND SPOKE WITH PATIENT AND HER . PT HAS RECURRENT SQUAMONS CELL CARCINOMA AND IS S/P TOTAL THYROIDECTOMY WITH PARTIAL MAXILLECTOMY AND TEETH EXTRACTION X4. PT LIVES IN A HOUSE WITH HER . PT HAS ABOUT 6 STEPS WITH HANDRAILS TO ENTER AND ABOUT ANOTHER 5 STEPS WITH HANDRAILS TO HER BEDROOM. PT IS NORMALLY INDEPENDENT WITH AMBULATION. PT HAS A PEG TUBE AT HOME THAT HER AND HER MANAGE. PT HAS TUBE FEEDS SET UP THROUGH [facility] AND PT GETS JEVITY 1.5. CM NOTIFIED [facility] WHO REPORTS THEY DO NOT NEED ANY CLINICAL UNLESS TF CHANGE. PT HAS HX OF BEING ON 5N. PT HAS A CANE AND WALKER AT HOME IF NEEDED. PT HAS USED [facility] IN THE PAST AND REPORTS THEY WERE GREAT AND PREFERS TO USE THEM AGAIN IF NEEDED. THERAPY HAS BEEN ORDERED FOR PATIENT. CM REQUESTED SUPERCHARGER MECHANIC TO PLEASE SEND REFERRAL TO [facility]. CM WILL CONTINUE TO FOLLOW.
--- NOTE | 2021-01-24 15:45 | NUR ---
FAXED REFERRAL TO [facility] SPOKE WITH ELROY IN INTAKE SHE RECEIVED REFERRAL AND WILL ACCEPT AT [place].
[2021-01-24 15:46] VITALS: BP 113/67
--- NOTE | 2021-01-24 17:08 | NUR ---
PT REFUSING TUBE FEEDING AT THIS TIME DUE TO PT STATING, "I JUST FEEL FULL." . PRIMARY RN MAHESH NOTIFIED. RESIDUALS CHECKED WELL AROUND THIS TIME, SEE CHARTING. OTHERWISE, TUBE FEEDING STILL FLUSHING AND ASPIRATING AT THIS TIME WELL. PT DID ALSO VERBALIZE SHE WOULD ATTEMPT TO TRY TUBE FEEDING AGAIN AROUND 1800 OR 1900.
[2021-01-24 17:11] VITALS: BP 166/80
--- NOTE | 2021-01-24 19:26 | NUR ---
PT CARE ASSUMED AT 1700. PT IN BED RESTING. REFUSING TUBE FEEDING BUT WILL BE OK TO RESTART IT WHEN RADIOLOGIC TECHNICIAN ARRIVES. NO DRAINAGE FROM [facility]. PER SPEECH PT CANNOT TOLERATE ICECHIPS AND TO KEEP HER NPO WITH A POSSIBLE SWALLOW STUDY TOMORROW.(01/25)
[2021-01-24 20:23] VITALS: BP 135/83
--- NOTE | 2021-01-24 21:50 | NUR ---
ASSESSMENT COMPLETED.PT WAS ANXIOUS AND TRYING TO GET OUT OF BED AT THE START OF SHIFT. TOOK ALOT OF REASURANCE TO CALM HER DOWN. MEDS GIVEN VIA PEG AND TUBE FEEDINGS RESTARTED @50/HR.PT IS AFEBRILE. DENIES PAIN.IVF INFUSING.NECK INCISION LOOKS OKAY.CALL LIGHT WITHIN REACH.
[2021-01-25 06:30] LABS: HEMATOCRIT 34.5 % (37.0-47.0); HEMOGLOBIN 11.6 gm/dL (12.0-15.0); MCH 30.1 pg (26.0-34.0); MCHC 33.7 g/dL (28.0-37.0); MCV 89.4 fL (80.0-100.0); RBC 3.86 mil/uL (4.20-5.00); RDW 16.4 % (10.5-14.5)
[2021-01-25 06:42] LABS: CALCIUM 8.2 mg/dL (8.5-10.1); POTASSIUM 3.6 mmol/L (3.5-5.1)
[2021-01-25 07:55] VITALS: BP 122/75
--- NOTE | 2021-01-25 12:19 | NUR ---
Assumed care of pt at 0700. Pt a&ox4. Pt passed swallow study this am. Worked with physical therapy. Home health was recommended. Provider notified. Dressing intact. Bolus tube feedings. Family at bedside. Call light within reach. Will conntinue to monitor.
--- NOTE | 2021-01-25 13:44 | NUR ---
on-going assessment: CM REVIEWED CHART AND SPOKE WITH BEDSIDE RN. SPEECH THERAPY SPOKE WITH CM AND RECOMMENDING HOME HEALTH, ALSO NITIFIED BEDSIDE RN. BEDSIDE RN SPOKE WITH DR COOK TO NOTIFY HIM OF HOME HEALTH REQUEST. PLANS ARE FOR PATIENT TO DISCHARGE HOME TOMORROW 01/26/21 WITH HOME HEALTH. [facility] HAS ACCEPTED PATIENT AND HAS HAD HER IN THE PAST. CM NOTIFIED [facility] THAT PLAN IS TO LIKELY DISCHARGE HOME TOMORROW. CM NOTIFIED BEDSIDE RN THAT ATTENDING WILL HAVE TO ORDER HOME HEALTH. ONCE DISCHARGE ORDERS ARE IN FAX TO [facility] FAX: [phone]. CONTACT FOR [facility] IS [phone].
[2021-01-25 15:50] VITALS: BP 127/86
[2021-01-25 20:43] VITALS: BP 139/78
[2021-01-26 04:15] VITALS: BP 142/77
[2021-01-26 07:16] VITALS: BP 122/69
[2021-01-26 10:19] VITALS: BP 113/67
--- NOTE | 2021-01-26 11:39 | NUR ---
Assumed pt care at 7am.Pt in bed sleeping till 8am.Assessment completed.vss. Received call from Dr Kaye,updates given and dc order noted.Pt and spouse notified about dc home today with home health.Am meds given with bolus feeding including pain med.H2o flushes done too.Dc summary compile and reviewed with pt and spouse.Saline lock dc'd.At 1100,pt dc home in [place] with .
--- NOTE | 2021-01-28 10:57 | NUR ---
FAXED DISCHARGE ORDES AND SUMMARY TO [facility]. ELROY/LIAISON FOR [facility] HAD NOT RECEIVED OF TODAY. WILL CONFIRM SHE RECEIVED AND WILL CONTACT FAMILY. [facility] P [phone]; FAX [phone]
--- NOTE | 2021-02-08 11:07 | PATH ---
[facility] [place] [place] [address] PATHOLOGY RPT PROCEDURE Name: KALEIGH BARTLETT Room #: 442-P DIS IN M.R.#: [id number] Admission: 01/24/21 Date of : 32 Discharge: 01/26/21 Report #: [id number] Path Case #: [id number] [facility] Accession Number: [id number] . 01 Material submitted: . PART A: thyroid gland - LEFT THYROID LOBE AND MEDIASTINAL FROZEN SECTION. Modifiers: left PART B: thyroid gland - RIGHT THYROID LOBE. Modifiers: right PART C: lip - LIP MARGIN 9-3 FS PART D: palate - PALATE MARGIN 9-3 FS PART E: MAXILLARY - MIDLINE MAXILLA FS PART F: MAXILLARY - POSTERIOR MARGIN FS PART G: mouth - #13 TOOTH PART H: MAXILLARY - ANTERIOR MAXILLECTOMY WITH TOOTH 9,10,11 AND 12 SUTURE IS AT 3 MIDLINE PART I: mouth - ROOT #9 PART J: mouth - ROOT #11 . 01 Clinician provided ICD-10: C03.0:E04.1 . 01 Clinical history: . 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 02 Frozen section diagnosis: . FROZEN SECTION DIAGNOSES: (Sylvester Castaneda MD) . A. Left thyroid and mediastinal mass; 3 cm well-circumscribed mass: - Follicular lesion - no overt malignancy. . The findings are discussed with Dr. Kaye intraoperatively and a progress note is placed in the patient's chart. . C. Lip margin: - Negative for invasive squamous cell carcinoma. . The findings are discussed intraoperatively with Dr. Kaye and a progress note is placed in the patient's chart. . D. Palate margin: - Negative for invasive squamous cell carcinoma. . The findings are discussed with Dr. Kaye intraoperatively and a progress note is placed in the patient's chart. . E. Midline maxilla margin: - Negative for invasive squamous cell carcinoma. . [facility] [address] [place] [address] PATHOLOGY RPT PROCEDURE Name: TRIKALEIGH Room #: 442-P [facility] IN M.R.#: [id number] Admission: 01/24/21 Date of : 32 Discharge: 01/26/21 Report #: [id number] Path Case #: [id number] The findings are discussed with Dr. Kaye intraoperatively and a progress note is placed in the patient's chart. . F. Posterior margin: - Negative for invasive squamous cell carcinoma. . The findings are discussed with Dr. Kaye intraoperatively and a progress note is placed in the patient's chart. . . FROZEN SECTION GROSS DESCRIPTION: A. Received fresh from the operating room labeled "left thyroid lobe and mediastinal mass", are two pieces of tissue, which together weigh 19.3 grams. The smaller piece represents the left lobe of the thyroid and this measures 4 x 2 x 2 cm. There is a 1.5 cm defect in the capsule. The surgical margin is inked. According to Dr. Kaye, the mass was dislodged from the thyroid capsule intraoperatively. Serial sectioning the thyroid shows somewhat heterogeneous reddish andrews tissue. Subtle small nodular structures are noted. . The "mediastinal mass" measures 3 x 3 cm and has a spherical shape. The surface is smooth, but somewhat multilobulated. The margin is inked. Serial sectioning reveals a heterogeneous cut surface. There are glistening andrews-red areas, hemorrhagic areas, and some small cystic spaces. A entry level marketing representative section is frozen and submitted as cassette A1. . Additional sections are submitted as follows: A2-A4: Additional sections of mediastinal mass A5-A6: Mirror Installer sections of thyroid tissue. . C. Received fresh from the operating room labeled, "lip margin Kaleigh Tri", is a 2.5 x 0.3 cm segment of mucosa with underlying submucosal tissue. The specimen is oriented to the occlusal margin as 3:00 and the dentate margin as 9:00. The 3:00 margin is inked in black ink, and the 9:00 margin in blue ink. The specimen is sectioned in the middle and both pieces are frozen and submitted as cassette C1. . D. Received labeled, "palate margin", is a 2.5 x 0.2 cm segment of mucosa and underlying submucosal tissue. Dr. Kaye has indicated the occlusal margin as 3:00 and the dentate margin as 9:00. The 3:00 margin is inked in black ink, and the 9:00 margin in blue ink. . E. Received fresh from the operating room labeled, "midline maxilla margin Kaleigh Tri", is a 1.5 x 0.3 cm segment of mucosa and submucosal tissue. The specimen is frozen and submitted in its entirety in cassette labeled E1. . F. Received labeled, "posterior margin Kaleigh Tri", is a 1.[address] [address] PATHOLOGY RPT PROCEDURE Name: KALEIGH BARTLETT Room #: 442-P DIS IN M.R.#: [id number] Admission: 01/24/21 Date of : 31 Discharge: 01/26/21 Report #: [id number] Path Case #: [id number] cm segment of mucosa with underlying submucosal tissue. The specimen is frozen and submitted in its entirety in cassette labeled F1. (MLK:xiao; 01/23/2021) . Frozen sections performed at [facility], [facility] [address], [place] [address] ERWIN/QMS . 03 Diagnosis: A. 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 - Adenomatoid nodule, measuring 3 cm, with post biopsy changes. - Intra-thyroidal, oncocytic parathyroid adenoma, 4 mm. - Adenomatous hyperplasia. - PLEASE SEE CANCER CASE SUMMARY BELOW. . B. Thyroid "right thyroid lobe", excision: - Adenomatous hyperplasia. - Adenomatoid nodule with osseous metaplasia. - Negative for malignancy. . Lymph node "perithyroid area", excision: - Reactive hyperplasia. - Negative for metastatic epithelial neoplasm. . C. Squamous mucosa "lip margin", biopsy: - (TRUE MARGIN) negative for dysplasia/squamous cell carcinoma. . D. Squamous mucosa "palate margin", biopsy: - (TRUE MARGIN) negative for dysplasia/squamous cell carcinoma. . E. Squamous mucosa "midline maxilla margin", biopsy: - (TRUE MARGIN) negative for dysplasia/squamous cell carcinoma. . F. Squamous mucosa "posterior margin", biopsy: - (TRUE MARGIN) negative for dysplasia/squamous cell carcinoma. . G. Tooth "#13", excision (gross only): - Intact upper left second bicuspid. . H. Anterior maxillectomy with teeth #19, #10, #11, and #12", excision: - INVASIVE, WELL-DIFFERENTIATED SQUAMOUS CELL CARCINOMA, FORMING A 1.8 CM MASS (pT1). - ALL MUCOSAL AND RODGER MARGINS NEGATIVE. - PLEASE SEE CANCER CASE SUMMARY BELOW. . [facility] [address] [place] [address] PATHOLOGY RPT PROCEDURE Name: KALEIGH BARTLETT Room #: 442-P [facility] IN .R.#: [id number] Admission: 01/24/21 Date of : 32 Discharge: 01/26/21 Report #: [id number] Path Case #: [id number] I. Tooth "root #9", excision (gross only): - Root of left upper central incisor. . J. Tooth "root #11", excision: - Root of left upper cuspid. . A/B. CANCER CASE SUMMARY CARCINOMAS OF THE THYROID . Version: Thyroid 4.2.0.0 . Protocol posting date: June 2019 . Procedure: ___ Total thyroidectomy . Tumor Focality ___ Unifocal . Tumor Site ___ Left lobe . Tumor Size Greatest dimension: 0.2 cm . Histologic Type ___ Papillary carcinoma, follicular variant, encapsulated/well demarcated, noninvasive . Margins ___ Uninvolved by carcinoma . Angioinvasion (Vascular Invasion) ___ Not identified . Lymphatic Invasion ___ Not identified . + Perineural Invasion +___ Not identified . Extrathyroidal Extension ___ Not identified . Regional Lymph Nodes Number of Lymph Nodes Involved: 0 . Extranodal Extension [facility] [address] [place] [address] PATHOLOGY RPT PROCEDURE Name: KALEIGH BARTLETT Room #: 442-P DIS IN M.R.#: [id number] Admission: 01/24/21 Date of : 31 Discharge: 01/26/21 Report #: [id number] Path Case #: [id number] ___ Not identified . Number of Lymph Nodes Examined: 1 . Regional Lymph Nodes (pN) ___ pN0a:One or more cytologically or histologically confirmed benign lymph nodes . + Additional Pathologic Findings + ___ Adenoma + ___ Adenomatoid nodule(s) or nodular follicular disease (eg, nodular hyperplasia, goitrous thyroid) + ___ Parathyroid gland(s) present (1): Oncocytic adenoma . (DONN:raoul; 02/07/2021) . . C/D/E/F/H. CANCER CASE SUMMARY Cancers of the Lip and Oral Cavity . Version: Lip oral cavity 4.0.0.1 . Protocol posting date: April 2017 . Procedure: Left anterior maxillectomy . Tumor Site: Oral, alveolar process, maxillary . Tumor Laterality: Left . Tumor Focality: Unifocal . Tumor Size: 1.8 cm . Histologic Type: Squamous Cell Carcinoma, Conventional . Histologic Grade: G1 (well differentiated) . Specimen Margin: Uninvolved by invasive tumor Uninvolved by high grade dysplasia/in situ disease . Tumor bed (separately submitted) Margin orientation - oriented to true margin surface . Tumor Bed (separately submitted) Margins - uninvolved by invasive tumor - uninvolved by high grade dysplasia/in situ disease . [address] [address] PATHOLOGY RPT PROCEDURE Name: KALEIGH BARTLETT Room #: 442-P DIS IN M.R.#: [id number] Admission: 01/24/21 Date of : 31 Discharge: 01/26/21 Report #: [id number] Path Case #: [id number] Lymphovascular Invasion - Not identified . Perineural Invasion - Not identified . Regional Lymph Nodes - No lymph nodes submitted or found . Pathologic Stage Classification (pTMN, AJCC 8th Edition) . Primary Tumor (pT): pT1 (tumor </= to 2 cm with depth of invasion (DOI)</= 5 mm . Regional Lymph Nodes (pN): pNX - regional lymph nodes cannot be assessed . Additional Pathologic Findings: Epithelial hyperplasia (MLK:xiao; 02/01/2021) QMS 02/08/2021 1054 Local . 03 Comment: The case is seen in co-review with Dr. Jose Goncalves, and he concurs with the above diagnosis. The thyroid is seen in co-rewiew with Dr. Fer Taylor and Dr. Gurpreet Faust, who both concur with the diagnosis. . The findings are discussed with Dr. Kaye on 02/07/2021 at 13:34, and with his staff on 02/01/2021 and 02/05/2021. . 03 Electronically signed: . Sylvester Castaneda MD, Pathologist NPI- [id number] . 01 Gross description: . A. PLEASE SEE FROZEN SECTION GROSS DESCRIPTION. . B. The specimen is received in formalin, labeled "Kaleigh Bartlett, right thyroid lobe" and consists of a 6 g lobe of thyroid measuring 4.6 x 2.5 x 1.5 cm with a loosely attached nodular segment of brown tissue measuring 1.9 x 1.7 x 0.8 cm. The external surface is brown and inked black. Sectioning reveals a brown parenchyma with a 0.4 cm cystic structure, 0.5 x 0.5 cm nodule, and 0.8 x 0.8 cm calcified nodule. The separately received nodule is inked blue and sectioned revealing andrews cut surfaces. The specimen is entirely submitted as follows: . B1-B6: Entire lobe (B4-B6 following the calcification) B7: Additional received nodule . C. PLEASE SEE FROZEN SECTION GROSS DESCRIPTION. . [address] [address] PATHOLOGY RPT PROCEDURE Name: KALEIGH BARTLETT Room #: 442-P DIS IN M.R.#: [id number] Admission: 01/24/21 Date of : 31 Discharge: 01/26/21 Report #: [id number] Path Case #: [id number] D. PLEASE SEE FROZEN SECTION GROSS DESCRIPTION. . E. PLEASE SEE FROZEN SECTION GROSS DESCRIPTION. . F. PLEASE SEE FROZEN SECTION GROSS DESCRIPTION. . G. The specimen is received in formalin, labeled "Kaleigh Bartlett, 13 tooth" and consists of a white tooth measuring 1.8 x 0.9 x 0.7 cm. A gross photo is taken. . H. The specimen is received in formalin, labeled "Kaleigh Bartlett, anterior maxillectomy with tooth 9, 10, 11, 12" and consists of a partial maxillectomy specimen with a suture designating 3:00 midline. The specimen measures 2.9 cm 9:00 midline to 3:00 midline, 1.4 cm lip-palate, and 1.4 cm superior-inferior. 4 teeth are present which are designated as teeth 9-12. Teeth 9-11 are partially silver capped on the palate aspect. The palate margin is inked black, 3:00 midline yellow, 9:00 midline red, lip margin orange, and deep bone/superior blue. Sections are submitted prior to decalcification as follows: . H1: 3:00 midline, en face H2: 9:00 midline, en face H3: Palate margin, perpendicular H4: Lip margin, perpendicular . The specimen is then placed in overnight decal. (SDY; 01/24/2021) . After overnight decalcification, the specimen is sectioned between each tooth, however the teeth are unable to be extracted from the bone/tissue. The remaining tissue is removed from the teeth and entirely submitted in H5-H6. (SDY; 01/25/2021) . I. The specimen is received in formalin, labeled "Tri, Kaleigh, root 11" and consists of a fragment of andrews foreign material measuring 0.5 x 0.5 x 0.3 cm. A gross photo is taken. . J. The specimen is received in formalin, labeled "Tri, Kaleigh, root 9" and consists of a fragment of andrews foreign material measuring 0.5 x 0.4 x 0.3 cm. A gross photo is taken. (SDY; 01/24/2021) SYU/QMS 01/25/2021 1612 Local . 03 Pathologist provided ICD-10: C03.0, E04.1, R59.9 . 03 CPT . [address] [address] PATHOLOGY RPT PROCEDURE Name: KALEIGH BARTLETT Room #: 442-P DIS IN M.R.#: [id number] Admission: 01/24/21 Date of : 31 Discharge: 01/26/21 Report #: [id number] Path Case #: [id number], [id number], [id number], [id number] Specimen Comment: A courtesy copy of this report has been sent to [phone] Specimen Comment: Report sent to / Performed at: 01 [facility] [address] [facility] [address], [place] [id number] MD Kade Mckinney MD Phone: [phone] Performed at: [address] [facility] [address] [id number] MD Sarah Escamilla MD Phone: [phone] Performed at: [address] [facility] [address] [id number] MD Jose Goncalves MD Phone: [phone]
== END 2021-01-26 11:01 | disposition home health service (06) | DRG 516 ==
LOC: OR 06:08 → TBA 06:09 → OR 14:18 → 4S 16:19 → OR 16:20 → 4S 16:20 → OR 16:22 → 4S 01-24 12:41
PROVIDERS: Hospitalist; ADMIT Otolaryngology Plastic Surgery within the Head & Neck; ATTEND Otolaryngology Plastic Surgery within the Head & Neck
PROC: 0CDWXZ1 Extraction of Upper Tooth, Multiple, External Approach (ICD-10-PCS; principal; 2021-01-23)
PROC: 0NBR0ZZ Excision of Maxilla, Open Approach (ICD-10-PCS; principal; 2021-01-23)
PROC: 0GTJ0ZZ Resection of Thyroid Gland Isthmus, Open Approach (ICD-10-PCS; principal; 2021-01-23)
PROC: 0CX Mouth and Throat, Transfer (ICD-10-PCS; 2021-01-23)
PROC: 0CX Mouth and Throat, Transfer (ICD-10-PCS; 2021-01-23)
PROC: 0GTK0ZZ Resection of Thyroid Gland, Open Approach (ICD-10-PCS; 2021-01-23)
PROC: 4A11X4G Monitoring of Peripheral Nervous Electrical Activity, Intraoperative, External Approach (ICD-10-PCS; 2021-01-23)
DX: C41.0 Malignant neoplasm of bones of skull and face (principal); E46 Unspecified protein-calorie malnutrition; C41.1 Malignant neoplasm of mandible; M27.8 Other specified diseases of jaws; E07.9 Disorder of thyroid, unspecified; F32.9 Major depressive disorder, single episode, unspecified; R13.10 Dysphagia, unspecified; E03.9 Hypothyroidism, unspecified; I10 Essential (primary) hypertension; Z90.5 Acquired absence of kidney; Z88.6 Allergy status to analgesic agent; Z68.23 Body mass index [BMI] 23.0-23.9, adult; R22.2 Localized swelling, mass and lump, trunk
CPT/HCPCS: 10102; 50010; 50101; 50386; 50417; 50455; 50951; 51412; 52190; 52220; 52287; 56524; 56526; 56528; 56668; 56760; 56805; 57006; 62110; 62900; 65020; 65040; 65130; 65133; 70005